=== PATIENT | female | born 1995 | race American Indian/Alaskan Native ===

== ENCOUNTER 2016-09-19 18:00 | Emergency (ER) | payer MEDICAID ==
[2016-09-19 18:55] LABS: Urine Drugs of Abuse Note Disclamer
[2016-09-19 20:01] LABS: Bilirubin,Urine NEG (Negative); Blood,Urine NEG (Negative); Ketones,Urine NEG (Negative); Leukocyte Esterase,Urine NEG (Negative); Mucus,Urine FEW /HPF; Nitrite,Urine NEG (Negative); Protein,Urine <15 mg/dL mg/dL (Negative); RBC,Urine < 1.0 /HPF (0.0-6.0); Urobilinogen,Urine < 2.0 mg/dL (<2.0)
[2016-09-19 20:31] LABS: Basophils % (Auto) 1.1 % (0.0-1.8); Eosinophils % (Auto) 1.8 % (0.0-4.3); Mean Corpuscular HGB Conc 30 % (30-34); Platelet Count 432 K/mm3 (140-440); Red Blood Count 5.75 M/mm3 (3.65-5.03); White Blood Count 5.7 K/mm3 (4.5-11.0)
[2016-09-19 20:39] LABS: Anion Gap 19 mmol/L; Blood Urea Nitrogen 6 mg/dL (7-17); Calcium 9.4 mg/dL (8.4-10.2); Carbon Dioxide 25 mmol/L (22-30); Chloride 104.4 mmol/L (98-107); Glucose 85 mg/dL (65-100); Potassium 4.2 mmol/L (3.6-5.0); Sodium 144 mmol/L (137-145)
[2016-09-19 20:44] LABS: Hematocrit 34.7 % (30.3-42.9); Hemoglobin 10.3 gm/dl (10.1-14.3); Mean Corpuscular Hemoglobin 18 pg (28-32); Mean Corpuscular Volume 60 fl (79-97); Red Cell Distribution Width 21.4 % (13.2-15.2)
--- NOTE | 2016-09-19 20:53 | Emergency Department Report ---
HPI - General Chief Complaint: Overdose Time Seen by Provider: 09/19/16 20:19 - HPI HPI: The patient is a 20-year-old female who presents for evaluation of mental health. The patient reports constant and severe sadness and hopelessness for the past 6 days, exacerbated with alcohol consumption, and associated with suicidal ideations. She states that she consumed a unknown quantity of oxycodone tablets at 4 PM earlier today,3-4 hours prior to arrival. The patient denies fever, headache, unexplained weight loss or weight gain, heat or cold intolerance, skin, hair, or nail changes, neuro deficits, homicidal ideations, or auditory or visual hallucinations. ED Past Medical Hx - Past Medical History Previous Medical History?: Yes Hx Hypertension: No Hx Congestive Heart Failure: No Hx Diabetes: No Hx Deep Vein Thrombosis: No Hx Renal Disease: No Hx Sickle Cell Disease: No Hx Seizures: No Hx Asthma: No Hx COPD: No Hx HIV: No Additional medical history: ASYMPTOMATIC HEART MURMUR ,sickle cell TRAIT - Surgical History Past Surgical History?: No Additional Surgical History: N/A - Social History Smoking Status: Unknown if ever smoked - Medications Home Medications: Home Medications Medication Instructions Recorded Confirmed Last Taken Type Pnv with Ca,No.72/Iron/FA [Pnv 1 tab PO DAILY 06/22/15 06/22/15 Unknown History Plus Multivit Tab] ED Review of Systems ROS: Stated complaint: EVALUATION Other details as noted in HPI Constitutional: denies: fever ENT: denies: throat or neck pain Respiratory: denies: cough, shortness of breath Cardiovascular: denies: chest pain Endocrine: denies unexplained weight loss or gain Gastrointestinal: denies: abdominal pain, nausea Genitourinary: denies: dysuria Musculoskeletal: denies: leg swelling Skin: denies: rash Neurological: denies: headache Hematological/Lymphatic: denies: easy bleeding or easy bruising Psych: reports sadness, hopelessness Physical Exam - Physical Exam Physical Exam: General: well-nourished, well-developed, no acute distress Head: Normocephalic, atraumatic Eyes: normal sclera ENT: Mucous membranes are pink and moist Neck: trachea midline, neck supple, No neck stiffness, no cervical adenopathy Respiratory: Breath sounds equal bilaterally, no wheezing, rales, or rhonchi Cardio: S1 and S2 present, no murmurs, rubs, gallops, capillary refill is brisk Abdomen: Normoactive bowel sounds, soft abdomen, no rigidity, no guarding or rebound tenderness Chest WALL/Back: No tenderness to palpation of the chest wall, no CVA tenderness with percussion Musc: No pitting edema Skin: No rash Neuro: no facial drooping, normal speech Psych: flat affect, poor insight, depressed mood, positive suicidal ideation ED Medical Decision Making - Lab Data Result diagrams: 09/19/16 20:05 09/19/16 20:05 - Medical Decision Making The patient was seen and examined by myself. The patient is placed on a digital field service technician and continuous pulse ox. On initial evaluation, the patient was found to be in no distress. Labs are obtained. Lab results are grossly unremarkable. The patient is medically clear. Mental health is consulted. Mental health evaluates the patient and agrees that the patient is at risk of harm to self. A 1013 is completed. The patient will be admitted to a psychiatric facility once bed placement is obtained. Critical care attestation.: If time is entered above; I have spent that time in minutes in the direct care of this critically ill patient, excluding procedure time. ED Disposition Clinical Impression: Suicidal behavior, Intentional overdose of drug in tablet form Disposition: DC/TX PSY HOSP/PSY UNIT Is pt being admited?: No Does the pt Need Aspirin: No Condition: Stable Referrals: PRIMARY CARE [Primary Care Provider] - 3-5 Days Time of Disposition: 20:53
[2016-09-19] MEDS ORDERED: MOTRIN PO ONE (21:32)
[2016-09-19] MEDS ORDERED: MOTRIN ONE (23:42)
[2016-09-20] MEDS ORDERED: MILK OF MAGNESIA PO PRN (04:39)
[2016-09-20] MEDS ORDERED: ALUM-MAG HYDROX-SIMETH 200-200-20MG/5ML PO PRN (04:39)
[2016-09-20 07:00] VITALS: BP 111/58
--- NOTE | 2016-09-20 09:02 | XRay Report ---
CERVICAL SPINE RADIOGRAPHS INDICATION: Neck pain. COMPARISON: None similar. FINDINGS: AP, lateral and open-mouth views of the cervical spine, 4 images, demonstrate grossly unremarkable visualized dens and symmetric lateral masses. An oral piercing ornament incidentally noted. Clear visualized lung apices. Intact craniocervical articulation on the lateral view with normal predental space and prevertebral soft tissues. Mild cervical kyphosis apex at C4-C5. Adequate visualization up to C7-T1 disc. Normal vertebral body stature and disc heights. Slight cervical dextrocurvature, possibly positional versus scoliosis. CONCLUSION: No acute cervical spine radiographic abnormality with kyphoscoliosis noted, as described. Please correlate. Thank you for the opportunity to participate in this patient's care.
== END 2016-09-20 08:42 ==
LOC: EEVIPCON 18:00 → ED 18:00
DX: T40.2X2A Poisoning by other opioids, intentional self-harm, initial encounter (principal); D57.3 Sickle-cell trait; Y93.89 Activity, other specified; Y99.8 Other external cause status; Y92.89 Other specified places as the place of occurrence of the external cause
CPT/HCPCS: 36415; 72040; 80048; 80307; 81001; 81025; 85025; 93005; 93010; 99285; G0480; 80320

== ENCOUNTER 2017-07-15 15:43 | Emergency (ER) | payer MEDICAID, OTHER ==
[2017-07-15] MEDS ORDERED: TORADOL IM ONE (20:54)
[2017-07-15] MEDS ORDERED: TESSALON PERLES PO ONE (20:54)
[2017-07-15] MEDS ORDERED: LIDOCAINE VISCOUS 2% PO ONE (20:54)
--- NOTE | 2017-07-15 21:06 | Emergency Department Report ---
- General Chief Complaint: Upper Respiratory Infection Stated Complaint: FLU LIKE SYMPTOMS Time Seen by Provider: 07/15/17 20:52 Source: patient Mode of arrival: Ambulatory Limitations: No Limitations - History of Present Illness Initial Comments: This is a 21-year-old female nontoxic, well nourished in appearance, no acute signs of distress presents to the ED with c/o of productive cough, fever, chills , rhinorrhea, sore throat x1 week. Patient describes productive cough as yellow /green mucus production. Patient stated had nausea, vomiting, and diarrhea yesterday but has subsided. Patient denies any chest pain, abdominal pain, calf pain, calf tenderness, nausea, vomiting, back pain, stiff neck, headache, blurry vision, shortness of breath, hemoptysis. Patient denies any recent travels, long car rides, or recent hospital stays. Patient denies any allergies or PMH. MD Complaint: fever, cough, sore throat, rhinorrhea, nasal congestion Severity: mild Severity scale (0 -10): 8 Quality: aching Consistency: constant Improves With: nothing Worsens With: nothing Associated Symptoms: fever, chills, rhinorrhea, nasal congestion, sore throat, cough. denies: myalgias, diaphoresis, headache, stiff neck, chest pain, shortness of breath, abdominal pain, nausea, vomiting, diarrhea, dysuria, rash, confusion, right sweats, weight loss, epistaxis, hoarseness, ear pain Treatments Prior to Arrival: none - Related Data Home Medications Medication Instructions Recorded Confirmed Last Taken Pnv,Calcium 72/Iron/Folic Acid 1 tab PO DAILY 06/22/15 06/22/15 Unknown [Pnv Plus Multivit Tab] Previous Rx's Medication Instructions Recorded Last Taken Type Azithromycin [Zithromax Z-MARY] 250 mg PO DAILY #6 tablet 07/15/17 Unknown Rx Benzonatate [Tessalon Perle] 100 mg PO Q6H PRN #20 capsule 07/15/17 Unknown Rx Ibuprofen [Motrin] 600 mg PO Q8H PRN #30 tablet 07/15/17 Unknown Rx Nystas/Diphen/Xyl Visc/Mylanta 15 ml MM Q6H PRN 20 Days udc 07/15/17 Unknown Rx [Magic Mouthwash] predniSONE [Deltasone] 40 mg PO QDAY #5 tab 07/15/17 Unknown Rx Allergies Allergy/AdvReac Type Severity Reaction Status Date / Time No Known Allergies Allergy Verified 07/15/17 15:52 ED Review of Systems ROS: Stated complaint: FLU LIKE SYMPTOMS Other details as noted in HPI Constitutional: denies: chills, fever Eyes: denies: eye pain, eye discharge, vision change ENT: throat pain. denies: ear pain Respiratory: cough. denies: shortness of breath, wheezing Cardiovascular: denies: chest pain, palpitations Endocrine: no symptoms reported Gastrointestinal: denies: abdominal pain, nausea, diarrhea Genitourinary: denies: urgency, dysuria, discharge Musculoskeletal: denies: back pain, joint swelling, arthralgia Skin: denies: rash, lesions Neurological: denies: headache, weakness, paresthesias Psychiatric: denies: anxiety, depression Hematological/Lymphatic: denies: easy bleeding, easy bruising ED Past Medical Hx - Past Medical History Hx Hypertension: No Hx Congestive Heart Failure: No Hx Diabetes: No Hx Deep Vein Thrombosis: No Hx Renal Disease: No Hx Sickle Cell Disease: No Hx Seizures: No Hx Asthma: No Hx COPD: No Hx HIV: No Additional medical history: ASYMPTOMATIC HEART MURMUR ,sickle cell TRAIT - Surgical History Additional Surgical History: N/A - Social History Smoking Status: Never Smoker Substance Use Type: None - Medications Home Medications: Home Medications Medication Instructions Recorded Confirmed Last Taken Type Pnv,Calcium 72/Iron/Folic Acid 1 tab PO DAILY 06/22/15 06/22/15 Unknown History [Pnv Plus Multivit Tab] Azithromycin [Zithromax Z-MARY] 250 mg PO DAILY #6 tablet 07/15/17 Unknown Rx Benzonatate [Tessalon Perle] 100 mg PO Q6H PRN #20 capsule 07/15/17 Unknown Rx Ibuprofen [Motrin] 600 mg PO Q8H PRN #30 tablet 07/15/17 Unknown Rx Nystas/Diphen/Xyl Visc/Mylanta 15 ml MM Q6H PRN 20 Days udc 07/15/17 Unknown Rx [Magic Mouthwash] predniSONE [Deltasone] 40 mg PO QDAY #5 tab 07/15/17 Unknown Rx ED Physical Exam - General Limitations: No Limitations General appearance: alert, in no apparent distress - Head Head exam: Present: atraumatic, normocephalic - Eye Eye exam: Present: normal appearance, PERRL, EOMI. Absent: scleral icterus, conjunctival injection, nystagmus, periorbital swelling, periorbital tenderness Pupils: Present: normal accommodation - ENT ENT exam: Present: mucous membranes moist, TM's normal bilaterally, normal external ear exam - Expanded ENT Exam Expanded Ear exam: Present: normal external inspection Mouth exam: Present: normal external inspection, tongue normal. Absent: drooling, trismus, muffled voice, tongue elevation, laceration Teeth exam: Present: normal inspection Throat exam: Positive: tonsillar erythema, tonsillomegaly (2+), tonsillar exudate. Negative: R peritonsillar mass, L peritonsillar mass - Neck Neck exam: Present: normal inspection, full ROM. Absent: tenderness, meningismus, lymphadenopathy, thyromegaly - Respiratory Respiratory exam: Present: normal lung sounds bilaterally. Absent: respiratory distress, wheezes, rales, rhonchi, stridor, chest wall tenderness, accessory muscle use, decreased breath sounds, prolonged expiratory - Cardiovascular Cardiovascular Exam: Present: regular rate, normal rhythm, normal heart sounds. Absent: irregular rhythm, systolic murmur, diastolic murmur, rubs, gallop - GI/Abdominal GI/Abdominal exam: Present: soft, normal bowel sounds. Absent: distended, tenderness, guarding, rebound, rigid, diminished bowel sounds - Rectal Rectal exam: Present: deferred - Extremities Exam Extremities exam: Present: normal inspection, full ROM, normal capillary refill. Absent: tenderness, pedal edema, joint swelling, calf tenderness - Back Exam Back exam: Present: normal inspection, full ROM. Absent: tenderness, CVA tenderness (R), CVA tenderness (L), muscle spasm, paraspinal tenderness, vertebral tenderness, rash noted - Neurological Exam Neurological exam: Present: alert, oriented X3, CN II-XII intact, normal gait, reflexes normal - Psychiatric Psychiatric exam: Present: normal affect, normal mood - Skin Skin exam: Present: warm, dry, intact, normal color. Absent: rash ED Course Vital Signs 07/15/17 07/15/17 15:52 22:09 Temperature 99 F 98.6 F Pulse Rate 91 H 97 H Respiratory 16 18 Rate Blood Pressure 133/94 Blood Pressure 143/87 [Right] O2 Sat by Pulse 98 100 Oximetry - Reevaluation(s) Reevaluation #1: 07/15/17 21:07 Patient is speaking in full sentences with no signs of distress noted. ED Medical Decision Making - Lab Data Result diagrams: 07/15/17 21:15 07/15/17 21:15 - Medical Decision Making Patient is a 21-year-old female that presents with upper resp infection and tonsillitis with exudate. Patient is stable and was examined by me. Chest xray has been obtained and dictated by radiologist. Patient was notified of xray results with no questions noted by the patient. Patient received viscous lidocaine and Tessalon Perles in the ED. Patient stated his symptoms are improving at having a cough and sore throat. Labs within normal limits. Patient is discharged with Z-Mary, Tessalon Perles. Patient was instructed to Follow-up with a primary care doctor in 3-5 days or if symptoms worsen and continue return to emergency room as soon as possible. At time time of discharge, the patient does not seem toxic or ill in appearance. No acute signs of distress noted. Patient agrees to discharge treatment plan of care. No further questions noted by the patient. This chart is dictated with using [employer] D[employer]ation [employer] Critical care attestation.: If time is entered above; I have spent that time in minutes in the direct care of this critically ill patient, excluding procedure time. ED Disposition Clinical Impression: Tonsillitis with exudate, Bronchitis Upper respiratory infection Qualifiers: URI type: unspecified URI Qualified Code(s): J06.9 - Acute upper respiratory infection, unspecified Disposition: DC-01 TO HOME OR SELFCARE Is pt being admited?: No Does the pt Need Aspirin: No Condition: Stable Instructions: Benzonatate (By mouth), Prednisone (By mouth), Azithromycin (By mouth), Upper Respiratory Infection (ED), Chronic Bronchitis (ED), Tonsillitis ( ED) Additional Instructions: Follow-up with a primary care doctor in 3-5 days or if symptoms worsen and continue return to emergency room as soon as possible. Prescriptions: Azithromycin [Zithromax Z-MARY] 250 mg PO DAILY #6 tablet Benzonatate [Tessalon Perle] 100 mg PO Q6H PRN #20 capsule PRN Reason: Cough Ibuprofen [Motrin] 600 mg PO Q8H PRN #30 tablet PRN Reason: Fever Nystas/Diphen/Xyl Visc/Mylanta [Magic Mouthwash] 15 ml MM Q6H PRN 20 Days udc PRN Reason: Sore Throat predniSONE [Deltasone] 40 mg PO QDAY #5 tab Referrals: ROE ROBERTS MD [Primary Care Provider] - 3-5 Days JIN ROMANO MD [Staff Physician] - 3-[address] [facility] [Outside] - 3-5 Days [facility] [Outside] - 3-5 Days Forms: Work/School Release Form(ED)
[2017-07-15] MEDS ORDERED: MOTRIN PO ONE (21:08)
[2017-07-15 21:36] LABS: Basophils % (Auto) 0.8 % (0.0-1.8); Eosinophils % (Auto) 4.2 % (0.0-4.3); Hemoglobin 10.6 gm/dl (10.1-14.3); Mean Corpuscular HGB Conc 31 % (30-34); Platelet Count 378 K/mm3 (140-440); Red Blood Count 5.14 M/mm3 (3.65-5.03); Red Cell Distribution Width 19.5 % (13.2-15.2); White Blood Count 4.8 K/mm3 (4.5-11.0)
[2017-07-15 21:37] LABS: Mean Corpuscular Hemoglobin 21 pg (28-32); Mean Corpuscular Volume 66 fl (79-97)
--- NOTE | 2017-07-15 21:45 | XRay Report ---
FINAL REPORT EXAM: XR CHEST ROUTINE 2V HISTORY: cough TECHNIQUE: Two views of the chest Comparison: None FINDINGS: Heart size is normal. Lungs are clear and well expanded without focal infiltrate or consolidation. There is mild peribronchial thickening. There is no pleural effusion. The imaged axial skeleton is unremarkable. IMPRESSION: No pneumonia. Mild peribronchial thickening compatible with bronchitis. Recommend follow-up imaging to ensure the left hilar peribronchial thickening completely resolves after treatment as it is simulating nodularity of the left hilum.
[2017-07-15 21:50] LABS: Alanine Aminotransferase 10 units/L (7-56); Albumin 4.1 g/dL (3.9-5); Albumin/Globulin Ratio 1.3 %; Alkaline Phosphatase 42 units/L (35-129); Anion Gap 14 mmol/L; BUN/Creatinine Ratio 17; Blood Urea Nitrogen 10 mg/dL (7-17); Calcium 9.2 mg/dL (8.4-10.2); Carbon Dioxide 29 mmol/L (22-30); Chloride 100.8 mmol/L (98-107); Glucose 97 mg/dL (65-100); Lipase 40 units/L (13-60); Potassium 4.2 mmol/L (3.6-5.0); Sodium 140 mmol/L (137-145); Total Protein 7.2 g/dL (6.3-8.2)
[2017-07-15 21:51] LABS: Bilirubin,Direct < 0.2 mg/dL (0-0.2)
[2017-07-15] MEDS ORDERED: DECADRON IM ONE (21:55)
[2017-07-15 22:39] VITALS: BP 123/58
== END 2017-07-15 22:39 | disposition home or self-care (01) ==
LOC: ED 15:43
DX: J40 Bronchitis, not specified as acute or chronic (principal); J06.9 Acute upper respiratory infection, unspecified; J03.90 Acute tonsillitis, unspecified
CPT/HCPCS: 36415; 71020; 80048; 80074; 83690; 84703; 85025; 96372; 99284; J1100; J1885

== ENCOUNTER 2017-08-04 16:22 | Emergency (ER) | payer OTHER ==
[2017-08-04 17:57] VITALS: BP 105/78
--- NOTE | 2017-08-04 21:44 | XRay Report ---
FINAL REPORT EXAM: XR ANKLE 3+V LT HISTORY: fall, pain, edema to lt ankle TECHNIQUE: 3 views of left ankle. PRIORS: None. FINDINGS: No apparent fracture or dislocation. Ankle mortise maintained. Soft tissues grossly unremarkable. Artifact from probable elastic brace incidentally noted. IMPRESSION: 1. No acute osseous abnormality.
== END 2017-08-05 07:06 | disposition left against medical advice (07) ==
LOC: ED 16:22
DX: M25.572 Pain in left ankle and joints of left foot (principal); Z53.21 Procedure and treatment not carried out due to patient leaving prior to being seen by health care provider

== ENCOUNTER 2017-09-06 02:19 | Emergency (ER) | payer OTHER | END 2017-09-06 04:00 | disposition left against medical advice (07) | LOC: ED 02:19 | DX: R10.9 Unspecified abdominal pain (principal); Z53.21 Procedure and treatment not carried out due to patient leaving prior to being seen by health care provider ==

== ENCOUNTER 2018-04-24 16:40 | Emergency (ER) | payer OTHER ==
[2018-04-24 16:57] VITALS: BP 139/81
== END 2018-04-24 17:55 | disposition left against medical advice (07) ==
LOC: ED 16:40
DX: J02.9 Acute pharyngitis, unspecified (principal); Z53.21 Procedure and treatment not carried out due to patient leaving prior to being seen by health care provider

== ENCOUNTER 2019-05-05 13:44 | Emergency (ER) | payer OTHER ==
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
[2019-05-05 16:30] VITALS: BP 103/70
== END 2019-05-05 16:29 | disposition home or self-care (01) ==
LOC: ED 13:44
DX: O99.342 Other mental disorders complicating pregnancy, second trimester (principal); F41.9 Anxiety disorder, unspecified; O26.892 Other specified pregnancy related conditions, second trimester; R10.30 Lower abdominal pain, unspecified; R42 Dizziness and giddiness; Z87.891 Personal history of nicotine dependence; Z79.899 Other long term (current) drug therapy; Z3A.18 18 weeks gestation of pregnancy; V49.59XA Passenger injured in collision with other motor vehicles in traffic accident, initial encounter; Y93.89 Activity, other specified; Y92.410 Unspecified street and highway as the place of occurrence of the external cause; Y99.8 Other external cause status
CPT/HCPCS: 76805

== ENCOUNTER 2019-07-18 15:34 | Outpatient (CLI) | payer OTHER ==
[2019-07-18 16:04] VITALS: BP 120/67
== END 2019-07-18 17:24 | disposition home or self-care (01) ==
LOC: TRG 15:34
PROVIDERS: ATTEND Obstetrics & Gynecology
DX: O47.02 False labor before 37 completed weeks of gestation, second trimester (principal); Z3A.27 27 weeks gestation of pregnancy
CPT/HCPCS: 59025

== ENCOUNTER 2019-09-27 20:22 | Outpatient (CLI) | payer OTHER ==
[2019-09-27 20:46] VITALS: BP 136/75
== END 2019-09-27 22:44 | disposition home or self-care (01) ==
LOC: TRG 20:22 → LD 20:24 → TRG 22:44
PROVIDERS: ATTEND Obstetrics & Gynecology
DX: O47.1 False labor at or after 37 completed weeks of gestation (principal); Z3A.37 37 weeks gestation of pregnancy

== ENCOUNTER 2020-01-14 16:04 | Emergency (ER) | payer OTHER ==
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
[2020-01-14 17:01] LABS: Basophils # (Auto) 0.1 K/mm3 (0.0-0.1); Basophils % (Auto) 0.8 % (0.0-1.8); Eosinophils # (Auto) 0.3 K/mm3 (0.0-0.4); Eosinophils % (Auto) 3.8 % (0.0-4.3); Hemoglobin 14.4 gm/dl (10.1-14.3); Lymphocytes # (Auto) 1.6 K/mm3 (1.2-5.4); Lymphocytes % (Auto) 24.3 % (13.4-35.0); Mean Corpuscular HGB Conc 33 % (30-34); Mean Corpuscular Volume 81 fl (79-97); Monocytes # (Auto) 0.7 K/mm3 (0.0-0.8); Platelet Count 447 K/mm3 (140-440); Red Blood Count 5.42 M/mm3 (3.65-5.03); Red Cell Distribution Width 18.5 % (13.2-15.2)
--- NOTE | 2020-01-14 17:19 | XRay Report ---
CHEST 2 VIEWS INDICATION / CLINICAL INFORMATION: sob,cough and rales. COMPARISON: 09/05/2016 FINDINGS: SUPPORT DEVICES: None. HEART / MEDIASTINUM: No significant abnormality. LUNGS / PLEURA: No significant pulmonary or pleural abnormality. No pneumothorax. ADDITIONAL FINDINGS: No significant additional findings. IMPRESSION: 1. No acute findings. Signer Name: Kiran Celeste MD Signed: 01/14/2020 5:14 PM Workstation Name: [id number]
[2020-01-14 17:24] LABS: Alanine Aminotransferase 14 units/L (7-56); Albumin 4.2 g/dL (3.9-5); BUN/Creatinine Ratio 13; Blood Urea Nitrogen 10 mg/dL (7-17); Calcium 9.8 mg/dL (8.4-10.2); Hemolysis Index 13
[2020-01-14] MEDS ORDERED: IBUPROFEN 400 MG TAB PO ONE (18:25)
[2020-01-14] MEDS ORDERED: FAMOTIDINE 20 MG TAB PO ONE (18:25)
[2020-01-14] MEDS ORDERED: ACETAMINOPHEN 500 MG TAB PO ONE (18:25)
--- NOTE | 2020-01-14 18:31 | Emergency Department Report ---
ED General Adult HPI - General Chief complaint: High BP Stated complaint: BP HIGH PUI?: No Time Seen by Provider: 01/14/20 16:40 Source: patient, RN notes reviewed, old records reviewed Mode of arrival: Ambulatory Limitations: No Limitations - History of Present Illness Initial comments: The patient is a 24-year-old female. She is not known to myself previously. 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 She does not have chronic medical conditions that she is aware of. She was at her outpatient [employer] doctor's office today, being evaluated for intermittent irregular menstruation, and was found to have elevated blood pressure, and thus referred to the emergency room for evaluation. On review of systems, the patient endorses multiple complaints. Her first complaint is headache. The headache is left-sided, temporal and throbbing. The headache started at 6 or 7:00 this morning. The headache is not sudden or thunderclap in nature. Headache is not maximal in intensity. The headache is not the most intense or worst headache of her life. She reports having had a worse headache last month. There is no neck pain or neck stiffness. There is no loss of vision. There is no extremity weakness and or numbness. There was no abdominal pain, shortness of breath, vomiting, diaphoresis, irritative or obstructive urinary symptoms. She is not sleeping well secondary to her , and she also reports at least 5 to 6 hours of screen time on her cellular phone. She also endorses a concurrent complaint of central chest wall pain, present constantly since 7:00 in the morning, which does not radiate to the back, arms or neck, without vomiting, diaphoresis or exertional shortness of breath. The patient states no recent oral contraceptive use, no travel, no surgeries, no posterior leg pain and or leg swelling. She is feeling somewhat anxious about her elevated blood pressure. She occasionally consumes caffeinated beverages as well. -: Gradual, hour(s) Location: head, chest Severity scale (0 -10): 7 Consistency: constant (Chest wall pain is constant), intermittent (Left-sided headache is intermittent, and now basically resolved) Improves with: other (Headache now resolved. No exacerbating or relieving factors that she is aware of. Chest wall pain is constant, increases with palpation and decreases with rest) - Related Data Home Medications Medication Instructions Recorded Confirmed Last Taken Pnv,Calcium 72/Iron/Folic Acid 1 tab PO DAILY 06/22/15 06/22/15 1 Week Ago [Pnv Plus Multivit Tab] ~07/11/19 1 tab buPROPion HCL [Bupropion HCl Sr] 150 mg PO 07/18/19 07/18/19 1 tab Previous Rx's Medication Instructions Recorded Last Taken Type Oseltamivir [Tamiflu] 75 mg PO BID 5 Days #10 cap 07/10/19 2 Days Ago Rx ~07/16/19 Ibuprofen [Motrin] 600 mg PO Q8H PRN #60 tablet 10/04/19 Unknown Rx Allergies Allergy/AdvReac Type Severity Reaction Status Date / Time No Known Allergies Allergy Verified 07/15/17 15:52 ED Review of Systems ROS: Stated complaint: BP HIGH Other details as noted in HPI Constitutional: denies: fever Eyes: denies: eye discharge, vision change Respiratory: denies: cough Cardiovascular: other (Chest wall pain). denies: syncope Gastrointestinal: denies: abdominal pain, nausea, vomiting Genitourinary: denies: dysuria Musculoskeletal: denies: back pain Neurological: headache. denies: weakness, numbness, paresthesias, confusion Psychiatric: as per HPI Hematological/Lymphatic: denies: easy bleeding ED Past Medical Hx - Past Medical History Previous Medical History?: Yes Hx Hypertension: No Hx CVA: No Hx Heart Attack/AMI: No Hx Congestive Heart Failure: No Hx Diabetes: No Hx Deep Vein Thrombosis: No Hx Pulmonary Embolism: No Hx GERD: No Hx Liver Disease: No Hx Renal Disease: No Hx Sickle Cell Disease: No Hx Arthritis: No Hx Headaches / Migraines: No Hx Seizures: No Hx Kidney Stones: No Hx Psychiatric Treatment: No Hx Asthma: No Hx COPD: No Hx HIV: No Additional medical history: ASYMPTOMATIC HEART MURMUR ,sickle cell TRAIT, ANXIE TY - Surgical History Past Surgical History?: No Additional Surgical History: N/A - Social History Smoking Status: Never Smoker Substance Use Type: None - Medications Home Medications: Home Medications Medication Instructions Recorded Confirmed Last Taken Type Pnv,Calcium 72/Iron/Folic Acid 1 tab PO DAILY 06/22/15 06/22/15 1 Week Ago History [Pnv Plus Multivit Tab] ~07/11/19 1 tab Oseltamivir [Tamiflu] 75 mg PO BID 5 Days #10 cap 07/10/19 07/18/19 2 Days Ago Rx ~07/16/19 buPROPion HCL [Bupropion HCl Sr] 150 mg PO 07/18/19 07/18/19 History 1 tab Ibuprofen [Motrin] 600 mg PO Q8H PRN #60 tablet 10/04/19 Unknown Rx ED Physical Exam - General Limitations: No Limitations General appearance: alert, in no apparent distress - Head Head exam: Present: atraumatic, normocephalic - Eye Eye exam: Present: normal appearance, PERRL, EOMI, other (Visual acuity intact to finger counting, color perception, reading at a close distance). Absent: nystagmus - ENT ENT exam: Present: normal exam, normal orophraynx, mucous membranes moist, normal external ear exam - Neck Neck exam: Present: normal inspection, full ROM. Absent: tenderness, meningismus - Respiratory Respiratory exam: Present: normal lung sounds bilaterally, chest wall tenderness. Absent: respiratory distress - Cardiovascular Cardiovascular Exam: Present: regular rate, normal rhythm, normal heart sounds. Absent: bradycardia, tachycardia, irregular rhythm, systolic murmur, diastolic murmur, rubs, gallop - GI/Abdominal GI/Abdominal exam: Present: soft, normal bowel sounds. Absent: distended, tenderness, guarding, rebound, rigid, pulsatile mass - Extremities Exam Extremities exam: Present: normal inspection, full ROM, other (2+ pulses noted in the bilateral upper and lower extremities. There is no palpable cord. negative Homans sign. Muscular compartments are soft. The pelvis is stable.). Absent: pedal edema, calf tenderness - Back Exam Back exam: Present: normal inspection, full ROM. Absent: tenderness, CVA tenderness (R), CVA tenderness (L), paraspinal tenderness, vertebral tenderness - Neurological Exam Neurological exam: Present: alert, oriented X3, normal gait, other (No facial droop. Tongue midline. Extraocular movements intact bilaterally. Facial sensation intact to light touch in V1, V2, V3 distribution bilaterally. 5 and a 5 strength in 4 extremities. Sensation intact to light touch in 4 extre mities.). Absent: motor sensory deficit - Psychiatric Psychiatric exam: Present: anxious - Skin Skin exam: Present: warm, dry, intact, normal color. Absent: rash ED Course Vital Signs 01/14/20 01/14/20 01/14/20 16:17 16:41 18:26 Temperature 99.4 F Pulse Rate 92 H Respiratory 20 Rate Blood Pressure Blood Pressure 164/110 [Right] O2 Sat by Pulse 98 100 Oximetry 01/14/20 01/14/20 01/14/20 18:30 18:46 19:33 Temperature Pulse Rate 88 Respiratory 18 Rate Blood Pressure 152/104 149/106 Blood Pressure 156/99 [Right] O2 Sat by Pulse 99 100 100 Oximetry - Reevaluation(s) Reevaluation #1: 01/14/20 19:03 Feels improved. Blood pressure improved. Resting comfortably in her stretcher and in no acute distress. Endorses readiness for discharge. ED Medical Decision Making - Lab Data Result diagrams: 01/14/20 16:51 01/14/20 16:51 Vital Signs 01/14/20 01/14/20 16:17 16:41 Temperature 99.4 F Pulse Rate 92 H Respiratory 20 Rate Blood Pressure 164/110 [Right] O2 Sat by Pulse 98 Oximetry Lab Results 01/14/20 01/14/20 01/14/20 Range/Units 16:51 16:51 17:49 WBC 6.6 (4.5-11.0) K/mm3 RBC 5.42 H (3.65-5.03) M/mm3 Hgb 14.4 H (10.1-14.3) gm/dl Hct 44.0 H (30.3-42.9) % MCV 81 (79-97) fl MCH 27 L (28-32) pg MCHC 33 (30-34) % RDW 18.5 H (13.2-15.2) % Plt Count 447 H (140-440) K/mm3 Lymph % (Auto) 24.3 (13.4-35.0) % Candler % (Auto) 11.0 H (0.0-7.3) % Eos % (Auto) 3.8 (0.0-4.3) % Baso % (Auto) 0.8 (0.0-1.8) % Lymph # 1.6 (1.2-5.4) K/mm3 Candler # 0.7 (0.0-0.8) K/mm3 Eos # 0.3 (0.0-0.4) K/mm3 Baso # 0.1 (0.0-0.1) K/mm3 Seg Neutrophils % 60.1 (40.0-70.0) % Seg Neutrophils # 4.0 (1.8-7.7) K/mm3 Sodium 139 (137-145) mmol/L Potassium 3.8 (3.6-5.0) mmol/L Chloride 100.7 (98-107) mmol/L Carbon Dioxide 25 (22-30) mmol/L Anion Gap 17 mmol/L BUN 10 (7-17) mg/dL Creatinine 0.8 (0.7-1.2) mg/dL Estimated GFR > 60 ml/min BUN/Creatinine Ratio 13 % Glucose 77 (65-100) mg/dL Calcium 9.8 (8.4-10.2) mg/dL Magnesium 2.20 (1.7-2.3) mg/dL Total Bilirubin 0.40 (0.1-1.2) mg/dL AST 17 (5-40) units/L ALT 14 (7-56) units/L Alkaline Phosphatase 59 (35-129) units/L Total Creatine Kinase 125 (30-135) units/L Troponin T < 0.010 (0.00-0.029) ng/mL Total Protein 7.9 (6.3-8.2) g/dL Albumin 4.2 (3.9-5) g/dL Albumin/Globulin Ratio 1.1 % - EKG Data -: EKG Interpreted by Hi EKG shows normal: sinus rhythm Rate: normal - EKG Data When compared to previous EKG there are: no significant change Interpretation: unchanged when compared t 01/14/20 18:35 EKG today as compared to prior EKG from September 19, 2016 Sinus rhythm, 82 bpm, normal axis, normal intervals, high left ventricular vol tage, incomplete right bundle branch block. The EKG is abnormal. There is early repolarization. The EKG is not a STEMI. - Radiology Data Radiology results: pending, report reviewed, image reviewed Report Referring Physician: MARY FERREIRA Patient Name: LESLI LOPEZ Date of : 1995 Sex: Female Report Date: 2020-01-14 Report Status: Finalized Findings [facility] [address] [place] [address] XRay Report Signed Patient: LESLI LOPEZ MR #: [id number] : 1995 Acct:[id number] Age/Sex: 24 / F ADM Date: 01/14/20 Loc: ED At [facility] Dr: Ordering Physician: IVONNE BAILEY Date of Service: 01/14/20 Procedure(s): XR chest routine 2V Accession Number(s): [id number] cc: IVONNE BAILEY Fluoro Time In Minutes: CHEST 2 VIEWS INDICATION / CLINICAL INFORMATION: sob,cough and rales. COMPARISON: 09/05/2016 FINDINGS: SUPPORT DEVICES: None. HEART / MEDIASTINUM: No significant abnormality. LUNGS / PLEURA: No significant pulmonary or pleural abnormality. No pneumothorax. ADDITIONAL FINDINGS: No significant additional findings. IMPRESSION: 1. No acute findings. Signer Name: Kiran Celeste MD Signed: 01/14/2020 5:14 PM Workstation Name: [id number] Transcribed By: DARWIN Dictated By: Kiran Celeste MD Electronically Authe nticated By: Kiran Celeste MD Signed Date/Time: 01/14/201713 DD/ 12 - Medical Decision Making Differential diagnosis, including but not limited to: Migraine headache, tension headache, cluster headache, headache secondary to excessive cell phone use, headache secondary to sleep deprivation. GERD, gastritis, hiatal hernia, costochondritis Assessment and plan: 24-year-old female with multiple complaints. Complaints #1, incidental elevated blood pressure. Patient has a GCS of 15, with NIH score of 0, unremarkable neurologic and physical examination, EKG unchanged from prior. Please reference the [employer] clinical policy on hypertension which is not acutely symptomatic. Given her benign exam, lack of meningeal findings, GCS, neuroimaging is unlikely to be of any significant diagnostic yield, and will expose the patient to unnecessary radiation. Therefore, we will treat her headache supportively and symptomatically. We have counseled the patient to minimize cellular phone use, and to avoid sleep deprivation, if possible. Patient counseled on need to follow-up with outpatient primary care doctor to follow along elevated blood pressure readings, and initiate therapy if possible. However, even if the patient does have hypertension, first-line treatment would be diet and lifestyle modification. Complaint #2 headache, please see above . Complaints #3, chest wall pain Patient is not currently tachycardic, tachypneic or hypoxic, she denies DVT and pulmonary embolism risk factors, she is low risk by Wells criteria, and she is PERC negative. Her EKG is unchanged from prior. A troponin was sent prior to my personal evaluation, it was obtained more than 8 hours after symptom onset, as per the [employer] clinical policy, acute myocardial infarction may be ruled out with 1 set of cardiac enzymes if symptoms present for greater than 8 hours. In addition, I find the patient to be low risk for major adverse cardiac event as per heart score. 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 Critical care attestation.: If time is entered above; I have spent that time in minutes in the direct care of this critically ill patient, excluding procedure time. ED Disposition Clinical Impression: Elevated blood pressure reading, Chest wall pain, Headache Disposition: DC-01 TO HOME OR SELFCARE Is pt being admited?: No Does the pt Need Aspirin: No Condition: Stable Additional Instructions: Patient should get at least 7 to 8 hours of good quality uninterrupted sleep each night. Patient should minimize consumption of alcohol, caffeine, heavy and spicy foods. Minimize computer and cell phone and tablet utilization, limit screen time to tasks that are only essential for daily functioning. Patient may take [id number] ibuprofen, 400 mg by mouth, with food as needed for pain, alternating with over-the counter Tylenol, 650 mg by mouth, every 4-6 hours as needed for pain, maximum daily dose of Tylenol to not exceed 3 g per 24 hours. Patient should exercise as tolerated, and eat plenty of fiber, vegetables, and lean protein. Advised that the patient follow-up with the primary medical doctor, or sweet goods machine operator for complaint of elevated blood pressure and chest discomfort within the next 5 to 7 days. Please return to the emergency room right away with new pain, worsening pain, migration of pain, projectile vomiting, change in mental status, confusion, inability to tolerate liquid feeds, new, worsened or different symptoms not present on the initial emergency room evaluation. Referrals: JULISSA TEJADA MD [Staff Physician] - 3-5 Days FRANCISCO JAVIER BUTLER MD [Staff Physician] - 3-5 Days JACLYN KEITH MD [Staff Physician] - 3-5 Days
[2020-01-14 19:34] VITALS: BP 156/99
== END 2020-01-14 19:34 | disposition home or self-care (01) ==
LOC: ED 16:04
DX: R03.0 Elevated blood-pressure reading, without diagnosis of hypertension (principal); R07.89 Other chest pain; R51 Headache; Z79.1 Long term (current) use of non-steroidal anti-inflammatories (NSAID); Z79.899 Other long term (current) drug therapy
CPT/HCPCS: 36415; 71046; 80053; 82550; 83735; 84484; 85025; 93005

== ENCOUNTER 2020-06-29 17:07 | Emergency (ER) | payer OTHER | END 2020-06-29 18:56 | disposition left against medical advice (07) | LOC: ED 17:07 | DX: M54.6 Pain in thoracic spine (principal); R51.9 Headache, unspecified; R10.9 Unspecified abdominal pain; Z53.21 Procedure and treatment not carried out due to patient leaving prior to being seen by health care provider ==

== ENCOUNTER 2020-12-14 15:47 | Emergency (ER) | payer OTHER ==
[2020-12-14 16:58] VITALS: BP 115/72
[2020-12-14 17:22] LABS: Basophils # (Auto) 0.2 K/mm3 (0.0-0.1); Basophils % (Auto) 2.5 % (0.0-1.8); Eosinophils # (Auto) 0.3 K/mm3 (0.0-0.4); Eosinophils % (Auto) 5.1 % (0.0-4.3); Hematocrit 39.9 % (30.3-42.9); Hemoglobin 13.3 gm/dl (10.1-14.3); Lymphocytes # (Auto) 1.4 K/mm3 (1.2-5.4); Lymphocytes % (Auto) 23.1 % (13.4-35.0); Mean Corpuscular HGB Conc 33 % (30-34); Mean Corpuscular Volume 81 fl (79-97); Monocytes # (Auto) 0.5 K/mm3 (0.0-0.8); Monocytes % (Auto) 8.5 % (0.0-7.3); Platelet Count 370 K/mm3 (140-440); Red Blood Count 4.93 M/mm3 (3.65-5.03)
[2020-12-14 17:45] LABS: Bilirubin,Urine NEG (Negative); Blood,Urine SM (Negative); Color,Urine Yellow (Yellow); Hyaline Casts,Urine 7 /LPF; Mucus,Urine 3+ /HPF; Protein,Urine <15 mg/dL mg/dL (Negative)
[2020-12-14 17:46] LABS: Alanine Aminotransferase 9 units/L (7-56); Albumin 4.4 g/dL (3.9-5); BUN/Creatinine Ratio 11; Blood Urea Nitrogen 10 mg/dL (7-17); Calcium 10.1 mg/dL (8.4-10.2); Hemolysis Index 10
[2020-12-14 17:50] LABS: Benzodiazepines Screen,Urine Negative; Cannabinoid Screen,Urine Negative; Cocaine Screen,Urine Negative; Methadone Screen,Urine Negative; Opiate Screen,Urine Negative
[2020-12-14 18:02] LABS: Amphetamine Screen,Urine Positive
--- NOTE | 2020-12-14 18:31 | XRay Report ---
CHEST 2 VIEWS INDICATION / CLINICAL INFORMATION: Chest pain, palpitations and lightheadedness. COMPARISON: 01/14/20. FINDINGS: SUPPORT DEVICES: None. HEART / MEDIASTINUM: The heart size and pulmonary vasculature are normal. The aorta is normal in araceli diana. LUNGS / PLEURA: No significant pulmonary or pleural abnormality. No pneumothorax. ADDITIONAL FINDINGS: No significant additional findings. IMPRESSION: No acute abnormality or significant change. Signer Name: Aditya Chaparro MD Signed: 12/14/2020 6:26 PM Workstation Name: [id number]
--- NOTE | 2020-12-14 18:53 | Emergency Department Report ---
ED General Adult HPI - General Chief complaint: Chest Pain Stated complaint: CHEST PAINS Time Seen by Provider: 12/14/20 17:13 Source: patient Mode of arrival: Ambulatory Limitations: No Limitations - History of Present Illness Initial comments: Patient is a 25-year-old female presents emergency room complaints of an episode of lightheadedness that occurred while she was at work. She states that she works at [employer] and it was very hot in the kitchen. She states that she also is having some intermittent midsternal chest pain and some palpitations when she was feeling lightheaded. She denies any pain or lightheadedness currently. She denies any dizziness or headache. Denies any fever, cough, nausea, vomiting, diarrhea, shortness of breath, pleuritic chest pain, leg swelling. she denies any recent travel, sick contacts, recent surgery, hormone use, recent immobilization. Past medical history of anxiety, sickle cell trait, heart murmur. No allergies to medications. Last menstrual cycle last week. - Related Data Home Medications Medication Instructions Recorded Confirmed Last Taken Pnv,Calcium 72/Iron/Folic Acid 1 tab PO DAILY 06/22/15 06/22/15 1 Week Ago [Pnv Plus Multivit Tab] ~07/11/19 1 tab buPROPion HCL [Bupropion HCl Sr] 150 mg PO 07/18/19 07/18/19 1 tab Previous Rx's Medication Instructions Recorded Last Taken Type Oseltamivir [Tamiflu] 75 mg PO BID 5 Days #10 cap 07/10/19 2 Days Ago Rx ~07/16/19 Ibuprofen [Motrin] 600 mg PO Q8H PRN #60 tablet 10/04/19 Unknown Rx Allergies Allergy/AdvReac Type Severity Reaction Status Date / Time No Known Allergies Allergy Verified 07/15/17 15:52 ED Review of Systems ROS: Stated complaint: CHEST PAINS Other details as noted in HPI Comment: All other systems reviewed and negative ED Past Medical Hx - Past Medical History Previous Medical History?: Yes Hx Hypertension: No Hx CVA: No Hx Heart Attack/AMI: No Hx Congestive Heart Failure: No Hx Diabetes: No Hx Deep Vein Thrombosis: No Hx Pulmonary Embolism: No Hx GERD: No Hx Liver Disease: No Hx Renal Disease: No Hx Sickle Cell Disease: No Hx Arthritis: No Hx Headaches / Migraines: No Hx Seizures: No Hx Kidney Stones: No Hx Psychiatric Treatment: No Hx Asthma: No Hx COPD: No Hx HIV: No Additional medical history: ASYMPTOMATIC HEART MURMUR ,sickle cell TRAIT, ANXIETY - Surgical History Additional Surgical History: N/A - Social History Smoking Status: Never Smoker Substance Use Type: None - Medications Home Medications: Home Medications Medication Instructions Recorded Confirmed Last Taken Type Pnv,Calcium 72/Iron/Folic Acid 1 tab PO DAILY 06/22/15 06/22/15 1 Week Ago History [Pnv Plus Multivit Tab] ~07/11/19 1 tab Oseltamivir [Tamiflu] 75 mg PO BID 5 Days #10 cap 07/10/19 07/18/19 2 Days Ago Rx ~07/16/19 buPROPion HCL [Bupropion HCl Sr] 150 mg PO 07/18/19 07/18/19 History 1 tab Ibuprofen [Motrin] 600 mg PO Q8H PRN #60 tablet 10/04/19 Unknown Rx ED Physical Exam - General Limitations: No Limitations General appearance: alert, in no apparent distress - Head Head exam: Present: atraumatic, normocephalic - Eye Eye exam: Present: normal appearance - ENT ENT exam: Present: mucous membranes moist - Respiratory Respiratory exam: Present: normal lung sounds bilaterally. Absent: respiratory distress, wheezes, rales, rhonchi, stridor, chest wall tenderness, accessory muscle use, decreased breath sounds, prolonged expiratory - Cardiovascular Cardiovascular Exam: Present: regular rate, normal rhythm, normal heart sounds. Absent: systolic murmur, diastolic murmur, rubs, gallop - Neurological Exam Neurological exam: Present: alert, oriented X3 - Psychiatric Psychiatric exam: Present: normal affect, normal mood - Skin Skin exam: Present: warm, dry, intact ED Course Vital Signs 12/14/20 12/14/20 16:57 16:58 Temperature 99.3 F Pulse Rate 84 Respiratory 18 Rate Blood Pressure 115/72 ED Medical Decision Making - Lab Data Result diagrams: 12/14/20 17:10 12/14/20 17:10 Lab Results 12/14/20 12/14/20 12/14/20 Range/Units 17:10 17:10 17:10 WBC 6.2 (4.5-11.0) K/mm3 RBC 4.93 (3.65-5.03) M/mm3 Hgb 13.3 (10.1-14.3) gm/dl Hct 39.9 (30.3-42.9) % MCV 81 (79-97) fl MCH 27 L (28-32) pg MCHC 33 (30-34) % RDW 14.0 (13.2-15.2) % Plt Count 370 (140-440) K/mm3 Lymph % (Auto) 23.1 (13.4-35.0) % Arthur % (Auto) 8.5 H (0.0-7.3) % Eos % (Auto) 5.1 H (0.0-4.3) % Baso % (Auto) 2.5 H (0.0-1.8) % Lymph # (Auto) 1.4 (1.2-5.4) K/mm3 Arthur # (Auto) 0.5 (0.0-0.8) K/mm3 Eos # (Auto) 0.3 (0.0-0.4) K/mm3 Baso # (Auto) 0.2 H (0.0-0.1) K/mm3 Seg Neutrophils % 60.8 (40.0-70.0) % Seg Neutrophils # 3.8 (1.8-7.7) K/mm3 Sodium 137 (137-145) mmol/L Potassium 3.6 (3.6-5.0) mmol/L Chloride 101.2 (98-107) mmol/L Carbon Dioxide 28 (22-30) mmol/L Anion Gap 11 mmol/L BUN 10 (7-17) mg/dL Creatinine 0.9 (0.6-1.2) mg/dL Estimated GFR > 60 ml/min BUN/Creatinine Ratio 11 % Glucose 74 (65-100) mg/dL Calcium 10.1 (8.4-10.2) mg/dL Magnesium 2.20 (1.7-2.3) mg/dL Total Bilirubin 0.20 (0.1-1.2) mg/dL AST 16 (5-40) units/L ALT 9 (7-56) units/L Alkaline Phosphatase 61 (35-129) units/L Total Creatine Kinase 132 (30-135) units/L Troponin T < 0.010 (0.00-0.029) ng/mL Total Protein 7.4 (6.3-8.2) g/dL Albumin 4.4 (3.9-5) g/dL Albumin/Globulin Ratio 1.5 % TSH 0.430 (0.270-4.200) mlU/mL HCG, Qual (Negative) Urine Color (Yellow) Urine Turbidity (Clear) Urine pH (5.0-7.0) Ur Specific [place] (1.003-1.030) Urine Protein (Negative) mg/dL Urine Glucose (UA) (Negative) mg/dL Urine Ketones (Negative) mg/dL Urine Blood (Negative) Urine Nitrite (Negative) Urine Bilirubin (Negative) Urine Urobilinogen (<2.0) mg/dL Ur Leukocyte Esterase (Negative) Urine WBC (Auto) (0.0-6.0) /HPF Urine RBC (Auto) (0.0-6.0) /HPF U Epithel Cells (Auto) (0-13.0) /HPF Hyaline Casts /LPF Urine Mucus /HPF Urine Opiates Screen Urine Methadone Screen Ur Barbiturates Screen Ur Phencyclidine Scrn Ur Amphetamines Screen U Benzodiazepines Scrn Urine Cocaine Screen U Marijuana (THC) Screen Drugs of Abuse Note 12/14/20 12/14/20 12/14/20 Range/Units 17:10 17:33 17:33 WBC (4.5-11.0) K/mm3 RBC (3.65-5.03) M/mm3 Hgb (10.1-14.3) gm/dl Hct (30.3-42.9) % MCV (79-97) fl MCH (28-32) pg MCHC (30-34) % RDW (13.2-15.2) % Plt Count (140-440) K/mm3 Lymph % (Auto) (13.4-35.0) % Arthur % (Auto) (0.0-7.3) % Eos % (Auto) (0.0-4.3) % Baso % (Auto) (0.0-1.8) % Lymph # (Auto) (1.2-5.4) K/mm3 Arthur # (Auto) (0.0-0.8) K/mm3 Eos # (Auto) (0.0-0.4) K/mm3 Baso # (Auto) (0.0-0.1) K/mm3 Seg Neutrophils % (40.0-70.0) % Seg Neutrophils # (1.8-7.7) K/mm3 Sodium (137-145) mmol/L Potassium (3.6-5.0) mmol/L Chloride (98-107) mmol/L Carbon Dioxide (22-30) mmol/L Anion Gap mmol/L BUN (7-17) mg/dL Creatinine (0.6-1.2) mg/dL Estimated GFR ml/min BUN/Creatinine Ratio % Glucose (65-100) mg/dL Calcium (8.4-10.2) mg/dL Magnesium (1.7-2.3) mg/dL Total Bilirubin (0.1-1.2) mg/dL AST (5-40) units/L ALT (7-56) units/L Alkaline Phosphatase (35-129) units/L Total Creatine Kinase (30-135) units/L Troponin T (0.00-0.029) ng/mL Total Protein (6.3-8.2) g/dL Albumin (3.9-5) g/dL Albumin/Globulin Ratio % TSH (0.270-4.200) mlU/mL HCG, Qual Negative (Negative) Urine Color Yellow (Yellow) Urine Turbidity Clear (Clear) Urine pH 5.0 (5.0-7.0) Ur Specific [place] 1.020 (1.003-1.030) Urine Protein <15 mg/dl (Negative) mg/dL Urine Glucose (UA) Neg (Negative) mg/dL Urine Ketones Neg (Negative) mg/dL Urine Blood Sm (Negative) Urine Nitrite Neg (Negative) Urine Bilirubin Neg (Negative) Urine Urobilinogen 2.0 (<2.0) mg/dL Ur Leukocyte Esterase Neg (Negative) Urine WBC (Auto) 3.0 (0.0-6.0) /HPF Urine RBC (Auto) 5.0 (0.0-6.0) /HPF U Epithel Cells (Auto) < 1.0 (0-13.0) /HPF Hyaline Casts 7 /LPF Urine Mucus 3+ /HPF Urine Opiates Screen Negative Urine Methadone Screen Negative Ur Barbiturates Screen Negative Ur Phencyclidine Scrn Negative Ur Amphetamines Screen Positive U Benzodiazepines Scrn Negative Urine Cocaine Screen Negative U Marijuana (THC) Screen Negative Drugs of Abuse Note Disclamer - EKG Data EKG shows normal: sinus rhythm, axis, intervals, QRS complexes, ST-T waves Rate: normal - Radiology Data Radiology results: report reviewed Ordering Physician: IVONNE MCGRATH Date of Service: 12/14/20 Procedure(s): XR chest routine 2V Accession Number(s): [id number] cc: IVONNE MCGRATH Fluoro Time In Minutes: CHEST 2 VIEWS INDICATION / CLINICAL INFORMATION: Chest pain, palpitations and lightheadedness. COMPARISON: 01/14/20. FINDINGS: SUPPORT DEVICES: None. HEART / MEDIASTINUM: The heart size and pulmonary vasculature are normal. The aorta is normal in caliber. LUNGS / PLEURA: No significant pulmonary or pleural abnormality. No pneumothorax. ADDITIONAL FINDINGS: No significant additional findings. IMPRESSION: No acute abnormality or significant change. Signer Name: Aditya Chaparro MD Signed: 12/14/2020 6:26 PM Workstation Name: [id number] Transcribed By: RT Dictated By: Aditya Chaparro MD Electronically Authenticated By: Aditya Chaparro MD Signed Date/Time: 12/14/201825 DD/ 24 TD/TT: Print Cancel - Medical Decision Making Patient is a 25-year-old female presents emergency room complaints of an episode of lightheadedness that occurred while she was at work. She states that she works at [employer] and it was very hot in the kitchen. She states that she also is having some intermittent midsternal chest pain and some palpitations when she was feeling lightheaded. She denies any pain or lightheadedness currently. She denies any dizziness or headache. Denies any fever, cough, nausea, vomiting, diarrhea, shortness of breath, pleuritic chest pain, leg swelling. she denies any recent travel, sick contacts, recent surgery, hormone use, recent immobilization. Past medical history of anxiety, sickle cell trait, heart murm ur. No allergies to medications. Last menstrual cycle last week. Vitals are normal. No abnormality on physical examination as documented in chart. Labs are normal. hCG is negative. UA is within normal limits. UA is positive for amphetamines. EKG is normal. Chest x-ray IMPRESSION: No acute abnormality or significant change. Patient has no focal neuro deficits on exam. She has no hypotension. Discussed amphetamines being positive in her UDS, she states that she is prescribed Adderall by her primary care doctor. She states that she believes she does have side effects from her Adderall and is planning to make an appointment with her primary care doctor to discuss other treatment options. PERC criteria negative for PE, PE unlikely. Advised patient Please increase your water intake. Please avoid caffeine use such as sodas, energy drinks, tea. Please avoid amphetamine use. Follow-up with your primary care doctor. Follow- up with a director correctional agency. Return to emergency room for any new or worsening symptoms. Critical care attestation.: If time is entered above; I have spent that time in minutes in the direct care of this critically ill patient, excluding procedure time. ED Disposition Clinical Impression: Palpitations, Lightheaded, Amphetamine abuse Chest pain Qualifiers: Chest pain type: unspecified Qualified Code(s): R07.9 - Chest pain, unspecified Disposition: DC-01 TO HOME OR SELFCARE Is pt being admited?: No Does the pt Need Aspirin: No Condition: Stable Instructions: Nonspecific Chest Pain, Adult Additional Instructions: Please increase your water intake. Please avoid caffeine use such as sodas, energy drinks, tea. Please avoid amphetamine use. Follow-up with your primary care doctor. Follow-up with a director correctional agency. Return to emergency room for any new or worsening symptoms. Referrals: PRIMARY CARE, [Primary Care Provider] - 2-3 Days LORELEI LEÓN MD [Staff Physician] - 2-3 Days Forms: Work/School Release Form(ED) Time of Disposition: 18:52 Print Language: HUNGARIAN
--- NOTE | 2020-12-15 13:35 | Electrocardiograph Report ---
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
== END 2020-12-14 19:13 | disposition home or self-care (01) ==
LOC: ED 15:47
DX: R00.2 Palpitations (principal); R07.89 Other chest pain; R42 Dizziness and giddiness; F15.10 Other stimulant abuse, uncomplicated; Z79.1 Long term (current) use of non-steroidal anti-inflammatories (NSAID); Z79.899 Other long term (current) drug therapy
CPT/HCPCS: 36415; 71046; 80053; 80307; 81001; 82550; 83735; 84443; 84484; 84703; 85025; 93005

== ENCOUNTER 2021-03-23 08:03 | Emergency (ER) | payer OTHER ==
[2021-03-23] MEDS ORDERED: ROCURONIUM 50 MG/5 ML INJ IV ONE (08:20)
[2021-03-23] MEDS ORDERED: MINERAL OIL/PETROLATUM, WHITE OPHTH OINT 3.5 GM OU PRN (08:24)
[2021-03-23] MEDS ORDERED: LIP THERAPY VASELINE TP PRN (08:24)
--- NOTE | 2021-03-23 08:29 | Emergency Department Report ---
HPI - General Time Seen by Provider: 03/23/21 08:23 - HPI HPI: This is a 25-year-old -[place] female presents to the emergency department via EMS from home for altered mental status and respiratory failure. The initial call from EMS was for cardiac arrest. However, prior to initiating ACLS protocol EMS found the patient to have a pulse and the breathing at about 4-6 times per minute. She was given 2 mg of Narcan without any change. She presents into bed #19 completely obtunded, with snoring respirations and bradypnea. Family told EMS that she could have overdosed on "something" as she will sometimes use medications recreationally. She has a past medical history of hypertension. ED Past Medical Hx - Past Medical History Hx Hypertension: No Hx CVA: No Hx Heart Attack/AMI: No Hx Congestive Heart Failure: No Hx Diabetes: No Hx Deep Vein Thrombosis: No Hx Pulmonary Embolism: No Hx GERD: No Hx Liver Disease: No Hx Renal Disease: No Hx Sickle Cell Disease: No Hx Arthritis: No Hx Headaches / Migraines: No Hx Seizures: No Hx Kidney Stones: No Hx Psychiatric Treatment: No Hx Asthma: No Hx COPD: No Hx HIV: No Additional medical history: ASYMPTOMATIC HEART MURMUR ,sickle cell TRAIT, ANXIETY - Surgical History Additional Surgical History: N/A - Social History Smoking Status: Never Smoker Substance Use Type: None - Medications Home Medications: Home Medications Medication Instructions Recorded Confirmed Last Taken Type Pnv,Calcium 72/Iron/Folic Acid 1 tab PO DAILY 06/22/15 06/22/15 1 Week Ago History [Pnv Plus Multivit Tab] ~07/11/19 1 tab Oseltamivir [Tamiflu] 75 mg PO BID 5 Days #10 cap 07/10/19 07/18/19 2 Days Ago Rx ~07/16/19 buPROPion HCL [Bupropion HCl Sr] 150 mg PO 07/18/19 07/18/19 History 1 tab Ibuprofen [Motrin] 600 mg PO Q8H PRN #60 tablet 10/04/19 Unknown Rx ED Review of Systems ROS: Stated complaint: CARDIAC ARREST Other details as noted in HPI Comment: Unobtainable due to pts medical conditions Physical Exam - Physical Exam Physical Exam: GENERAL: The patient is ill-appearing and unresponsive. HENT: Normocephalic. Atraumatic. Patient has moist mucous membranes. EYES: Pupils are equal and round, but dilated at about 7 mm. Both pupils have a brisk reactivity to light. NECK: Supple. Trachea is midline. CHEST/LUNGS: Coarse breath sounds. Bradypnea with snoring respirations. HEART/CARDIOVASCULAR: Regular. There is severe tachycardia. There is no murmur. ABDOMEN: Abdomen is soft, nontender. Patient has normal bowel sounds. SKIN: Skin is warm and dry. NEURO: Patient is unresponsive to verbal or tactile stimuli. GCS of 3. She appears to have some posturing of the bilateral upper extremities. MUSCULOSKELETAL: There is no obvious deformity. ED Course - Consultations Consultation #1: 03/23/21 10:00 I spoke to the neurosurgeon on-call, Dr. Bass, who listened to the pr esentation and the CT results showing concern for diffuse cerebral edema. He recommended the patient receive 100 g of mannitol, a loading dose of Keppra, and the patient will need transfer to another facility as we do not have actual neurosurgical capabilities here. Consultation #2: 03/23/21 10:10 I contacted the [place] transfer line to speak with them regarding transfer the patient to their ICU. They are going to call me back once the physicians have been contacted but the transfer line notifies me that they are on saturation. I will contact [facility] for Sarah in the meantime. 03/23/21 10:39 I did speak with the [place] neuro test hole driller, Dr. Pa. She took a look at the images from the CT scan of the brain and says that it does not appear consistent with a venous sinus thrombosis. She recommends extensive resuscitation and MICU management for the source of the hypoxia. Unfortunately they do not have a ICU bed available for transfer. I then spoke with Dr. Glover, neuro test hole driller at [facility]. The patient has tentatively been accepted for transfer to [facility]. She will either get a bed assignment or it will be ER to ER. - Intubation Time Out Performed: Yes Paralytic: Rocuronium Mg Given: 80 Laryngoscope: other (Ball scope) Size: 3 ET Tube Size: 7.5 Tube Secured Depth (cm): 24 Tube Secured Location: lips Tube Placement Confirmation: visualized tube passing t, equal breath sounds galo at, confirmation by capnometr Patient Tolerated Procedure: well Intubation Complications: none ED Medical Decision Making - Lab Data Result diagrams: 03/23/21 08:53 03/23/21 08:53 Lab Results 03/23/21 03/23/21 03/23/21 Range/Units 08:07 08:34 08:53 WBC 4.6 (4.5-11.0) K/mm3 RBC 5.70 H (3.65-5.03) M/mm3 Hgb 15.2 H (10.1-14.3) gm/dl Hct 47.8 H (30.3-42.9) % MCV 84 (79-97) fl MCH 27 L (28-32) pg MCHC 32 (30-34) % RDW 16.0 H (13.2-15.2) % PT (12.2-14.9) Sec. INR (0.87-1.13) APTT (24.2-36.6) Sec. Sodium (137-145) mmol/L Potassium (3.6-5.0) mmol/L Chloride (98-107) mmol/L Carbon Dioxide (22-30) mmol/L Anion Gap mmol/L BUN (7-17) mg/dL Creatinine (0.6-1.2) mg/dL Estimated GFR ml/min BUN/Creatinine Ratio % Glucose (65-100) mg/dL POC Glucose 30 L 141 H (70-105) mg/dL Lactic Acid (0.7-2.0) mmol/L Calcium (8.4-10.2) mg/dL Total Bilirubin (0.1-1.2) mg/dL AST (5-40) units/L ALT (7-56) units/L Alkaline Phosphatase (35-129) units/L Ammonia (25-60) umol/L Troponin T (0.00-0.029) ng/mL Total Protein (6.3-8.2) g/dL Albumin (3.9-5) g/dL Albumin/Globulin Ratio % Triglycerides (2-149) mg/dL Cholesterol (50-199) mg/dL LDL Cholesterol Direct (50-130) mg/dL HDL Cholesterol (40-59) mg/dL Cholesterol/HDL Ratio % TSH (0.270-4.200) mlU/mL Urine Color (Yellow) Urine Turbidity (Clear) Urine pH (5.0-7.0) Ur Specific Lindsay (1.003-1.030) Urine Protein (Negative) mg/dL Urine Glucose (UA) (Negative) mg/dL Urine Ketones (Negative) mg/dL Urine Blood (Negative) Urine Nitrite (Negative) Urine Bilirubin (Negative) Urine Urobilinogen (<2.0) mg/dL Ur Leukocyte Esterase (Negative) Urine WBC (Auto) (0.0-6.0) /HPF Urine RBC (Auto) (0.0-6.0) /HPF U Epithel Cells (Auto) (0-13.0) /HPF Salicylates (2.8-20.0) mg/dL Acetaminophen (10.0-30.0) ug/mL Plasma/Serum Alcohol (0-0.07) % 03/23/21 03/23/21 03/23/21 Range/Units 08:53 08:53 08:53 WBC (4.5-11.0) K/mm3 RBC (3.65-5.03) M/mm3 Hgb (10.1-14.3) gm/dl Hct (30.3-42.9) % MCV (79-97) fl MCH (28-32) pg MCHC (30-34) % RDW (13.2-15.2) % PT 16.6 H (12.2-14.9) Sec. INR 1.29 H (0.87-1.13) APTT 22.1 L (24.2-36.6) Sec. Sodium 140 (137-145) mmol/L Potassium 4.9 (3.6-5.0) mmol/L Chloride 103.7 (98-107) mmol/L Carbon Dioxide 26 (22-30) mmol/L Anion Gap 15 mmol/L BUN 15 (7-17) mg/dL Creatinine 1.3 H (0.6-1.2) mg/dL Estimated GFR 59 ml/min BUN/Creatinine Ratio 12 % Glucose 138 H (65-100) mg/dL POC Glucose (70-105) mg/dL Lactic Acid 5.80 H* (0.7-2.0) mmol/L Calcium 8.2 L (8.4-10.2) mg/dL Total Bilirubin 0.30 (0.1-1.2) mg/dL AST 60 H (5-40) units/L ALT 21 (7-56) units/L Alkaline Phosphatase 58 (35-129) units/L Ammonia (25-60) umol/L Troponin T 0.170 H* (0.00-0.029) ng/mL Total Protein 7.4 (6.3-8.2) g/dL Albumin 3.8 L (3.9-5) g/dL Albumin/Globulin Ratio 1.1 % Triglycerides 95 (2-149) mg/dL Cholesterol 93 (50-199) mg/dL LDL Cholesterol Direct 38 L (50-130) mg/dL HDL Cholesterol 44 (40-59) mg/dL Cholesterol/HDL Ratio 2.11 % TSH (0.270-4.200) mlU/mL Urine Color (Yellow) Urine Turbidity (Clear) Urine pH (5.0-7.0) Ur Specific Lindsay (1.003-1.030) Urine Protein (Negative) mg/dL Urine Glucose (UA) (Negative) mg/dL Urine Ketones (Negative) mg/dL Urine Blood (Negative) Urine Nitrite (Negative) Urine Bilirubin (Negative) Urine Urobilinogen (<2.0) mg/dL Ur Leukocyte Esterase (Negative) Urine WBC (Auto) (0.0-6.0) /HPF Urine RBC (Auto) (0.0-6.0) /HPF U Epithel Cells (Auto) (0-13.0) /HPF Salicylates (2.8-20.0) mg/dL Acetaminophen (10.0-30.0) ug/mL Plasma/Serum Alcohol (0-0.07) % 03/23/21 03/23/21 03/23/21 Range/Units 08:53 08:53 08:53 WBC (4.5-11.0) K/mm3 RBC (3.65-5.03) M/mm3 Hgb (10.1-14.3) gm/dl Hct (30.3-42.9) % MCV (79-97) fl MCH (28-32) pg MCHC (30-34) % RDW (13.2-15.2) % PT (12.2-14.9) Sec. INR (0.87-1.13) APTT (24.2-36.6) Sec. Sodium (137-145) mmol/L Potassium (3.6-5.0) mmol/L Chloride (98-107) mmol/L Carbon Dioxide (22-30) mmol/L Anion Gap mmol/L BUN (7-17) mg/dL Creatinine (0.6-1.2) mg/dL Estimated GFR ml/min BUN/Creatinine Ratio % Glucose (65-100) mg/dL POC Glucose (70-105) mg/dL Lactic Acid (0.7-2.0) mmol/L Calcium (8.4-10.2) mg/dL Total Bilirubin (0.1-1.2) mg/dL AST (5-40) units/L ALT (7-56) units/L Alkaline Phosphatase (35-129) units/L Ammonia 103.0 H (25-60) umol/L Troponin T (0.00-0.029) ng/mL Total Protein (6.3-8.2) g/dL Albumin (3.9-5) g/dL Albumin/Globulin Ratio % Triglycerides (2-149) mg/dL Cholesterol (50-199) mg/dL LDL Cholesterol Direct (50-130) mg/dL HDL Cholesterol (40-59) mg/dL Cholesterol/HDL Ratio % TSH 0.360 (0.270-4.200) mlU/mL Urine Color (Yellow) Urine Turbidity (Clear) Urine pH (5.0-7.0) Ur Specific Lindsay (1.003-1.030) Urine Protein (Negative) mg/dL Urine Glucose (UA) (Negative) mg/dL Urine Ketones (Negative) mg/dL Urine Blood (Negative) Urine Nitrite (Negative) Urine Bilirubin (Negative) Urine Urobilinogen (<2.0) mg/dL Ur Leukocyte Esterase (Negative) Urine WBC (Auto) (0.0-6.0) /HPF Urine RBC (Auto) (0.0-6.0) /HPF U Epithel Cells (Auto) (0-13.0) /HPF Salicylates < 0.3 L (2.8-20.0) mg/dL Acetaminophen (10.0-30.0) ug/mL Plasma/Serum Alcohol (0-0.07) % 03/23/21 03/23/21 03/23/21 Range/Units 08:53 08:53 Unknown WBC (4.5-11.0) K/mm3 RBC (3.65-5.03) M/mm3 Hgb (10.1-14.3) gm/dl Hct (30.3-42.9) % MCV (79-97) fl MCH (28-32) pg MCHC (30-34) % RDW (13.2-15.2) % PT (12.2-14.9) Sec. INR (0.87-1.13) APTT (24.2-36.6) Sec. Sodium (137-145) mmol/L Potassium (3.6-5.0) mmol/L Chloride (98-107) mmol/L Carbon Dioxide (22-30) mmol/L Anion Gap mmol/L BUN (7-17) mg/dL Creatinine (0.6-1.2) mg/dL Estimated GFR ml/min BUN/Creatinine Ratio % Glucose (65-100) mg/dL POC Glucose (70-105) mg/dL Lactic Acid (0.7-2.0) mmol/L Calcium (8.4-10.2) mg/dL Total Bilirubin (0.1-1.2) mg/dL AST (5-40) units/L ALT (7-56) units/L Alkaline Phosphatase (35-129) units/L Ammonia (25-60) umol/L Troponin T (0.00-0.029) ng/mL Total Protein (6.3-8.2) g/dL Albumin (3.9-5) g/dL Albumin/Globulin Ratio % Triglycerides (2-149) mg/dL Cholesterol (50-199) mg/dL LDL Cholesterol Direct (50-130) mg/dL HDL Cholesterol (40-59) mg/dL Cholesterol/HDL Ratio % TSH (0.270-4.200) mlU/mL Urine Color Colorless (Yellow) Urine Turbidity Clear (Clear) Urine pH 7.0 (5.0-7.0) Ur Specific Lindsay 1.004 (1.003-1.030) Urine Protein <15 mg/dl (Negative) mg/dL Urine Glucose (UA) 50 (Negative) mg/dL Urine Ketones Neg (Negative) mg/dL Urine Blood Mod (Negative) Urine Nitrite Neg (Negative) Urine Bilirubin Neg (Negative) Urine Urobilinogen < 2.0 (<2.0) mg/dL Ur Leukocyte Esterase Neg (Negative) Urine WBC (Auto) 1.0 (0.0-6.0) /HPF Urine RBC (Auto) 1.0 (0.0-6.0) /HPF U Epithel Cells (Auto) < 1.0 (0-13.0) /HPF Salicylates (2.8-20.0) mg/dL Acetaminophen 5.0 L (10.0-30.0) ug/mL Plasma/Serum Alcohol < 0.01 (0-0.07) % - EKG Data -: EKG Interpreted by Ne EKG shows normal: sinus rhythm, axis, intervals, QRS complexes, ST-T waves Rate: tachycardia (135 bpm) - EKG Data When compared to previous EKG there are: previous EKG unavailable Interpretation: other (Sinus tachycardia at 135 bpm, normal axis, normal inter vals. No ST elevation TN) - Radiology Data Radiology results: report reviewed CHEST 1 VIEW 03/23/2021 8:09 AM INDICATION / CLINICAL INFORMATION: ETT placement. COMPARISON: December 14, 2020 FINDINGS: SUPPORT DEVICES: ET tube is satisfactory in position NG tube extends within the stomach HEART / MEDIASTINUM: No significant abnormality. LUNGS / PLEURA: Diffuse opacities are seen lungs most significant in the right lung with possible layering effusion and underlying parenchymal disease. No pneumothorax. CT head/brain wo con INDICATION: Altered mental status. TECHNIQUE: Routine CT head. All CT scans at this location are performed using CT dose reduction for ALARA by means of automated exposure control. COMPARISON: 01/18/2011 FINDINGS: Intracranial: Complete sulcal effacement. The sulci were not well seen on the prior exam from 10 years ago. However the findings. Mildly worse. Toribio-white matter differentiation is maintained. No intracranial hemorrhage. No extra axial collection. No hydrocephalus. No herniation. Sinuses: Paranasal sinuses and mastoid air cells are essentially clear. Orbits: Globes are intact. Calvarium: No acute fracture. IMPRESSION: 1. Complete sulcal effacement raises concern for underlying diffuse cerebral edema which can be seen in the setting of hypoxic ischemic injury injury. No loss of toribio-white matter differentiation to suggest territorial infarction. Findings could also be normal and related to patient's age as the sulci were not well appreciated on prior exam. Recommend MRI brain for further evaluation. Signer Name: Cain Huang MD Signed: 03/23/2021 9:44 AM Workstation Name: [id number] Transcribed By: CS Dictated By: Cain Huang MD Electronically Authenticated By: Cain Huang MD Signed Date/Time: 03/23/21943 DD/ 3 TD/TT: -- [Addendum Report Added by CAIN HUANG at 2021-03-23 09:59:45] [facility] [address] [place] [address] Cat Scan Report Signed Patient: LESLI LOPEZ MR #: [id number] : 1995 Acct:[id number] Age/Sex: 25 / F ADM Date: 03/23/21 Loc: ED Attending Dr: Ordering Physician: OLINDA REYNAGA DO Date of Service: 03/23/21 Procedure(s): CT head/brain wo con Accession Number(s): [id number] cc: OLINDA REYNAGA DO CT head/brain wo con INDICATION: Altered mental status. TECHNIQUE: Routine CT head. All CT scans at this location are performed using CT dose reduction for ALARA by means of automated exposure control. COMPARISON: 01/18/2011 FINDINGS: Intracranial: Complete sulcal effacement. The sulci were not well seen on the prior exam from 10 years ago. However the find ings. Mildly worse. Toribio-white matter differentiation is maintained. No intracranial hemorrhage. No extra axial collection. No hydrocephalus. No herniation. Sinuses: Paranasal sinuses and mastoid air cells are essentially clear. Orbits: Globes are intact. Calvarium: No acute fracture. IMPRESSION: 1. Complete sulcal effacement raises concern for underlying diffuse cerebral edema which can be seen in the setting of hypoxic ischemic injury injury. No loss of toribio-white matter differentiation to suggest territorial infarction. Findings could also be normal and related to patient's age as the sulci were not well appreciated on prior exam. Recommend MRI brain for further evaluation. - Medical Decision Making This patient presented via EMS from home after she was found unresponsive in respiratory distress. No response to Narcan. She had some hypoglycemia and was given D50 but once again had no response. The patient was intubated by me as per the procedure section. Chest x-ray shows some bilateral opacities, right greater than left, and a pleural effusion. CT of the head shows concern for diffuse cerebral edema. I had a discussion with our neurosurgeon on-call who recommended mannitol and Keppra and transfer. I spoke with neuro test hole driller at [place] but they did not have any bed availability. The patient was accepted for transfer to [facility] by their neuro test hole driller. Labs are mostly remarkable for a lactic acidosis greater than 5, and an elevated troponin of 0.17. EKG did not have any morphology consistent with ST elevation myocardial infarction, or any dysrhythmia. The patient's mother and grandmother were updated regarding her condition, her results, and the plan for transfer to [facility]. Critical Care Time: Yes Critical care time in (mins) excluding proc time.: 75 Critical care attestation.: If time is entered above; I have spent that time in minutes in the direct care of this critically ill patient, excluding procedure time. Critical care time was spent on this patient doing her initial evaluation, multiple reevaluations, ordering and interpretation of labs and imaging, IV mannitol for the cerebral edema, discussion with our neurosurgeon director of labor relations, discussion with 2 different neuro test hole driller, discussions with the patient's family. Critical Care Time: 75 minutes ED Disposition Clinical Impression: Acute respiratory failure, Cerebral edema, NSTEMI (non-ST elevated myocardial infarction), Lactic acidosis Disposition: 51 HOSPICE/MEDICAL FACILITY Is pt being admited?: No Condition: Critical Time of Disposition: 13:31
[2021-03-23] MEDS: SODIUM CHLORIDE 0.9% 1000 ML 1,000 ML IV ONE ×2 (09:00→10:17)
[2021-03-23 09:06] LABS: Hematocrit 47.8 % (30.3-42.9); Hemoglobin 15.2 gm/dl (10.1-14.3); Mean Corpuscular HGB Conc 32 % (30-34); Mean Corpuscular Volume 84 fl (79-97)
--- NOTE | 2021-03-23 09:19 | XRay Report ---
CHEST 1 VIEW 03/23/2021 8:09 AM INDICATION / CLINICAL INFORMATION: ETT placement. COMPARISON: December 14, 2020 FINDINGS: SUPPORT DEVICES: ET tube is satisfactory in position NG tube extends within the stomach HEART / MEDIASTINUM: No significant abnormality. LUNGS / PLEURA: Diffuse opacities are seen lungs most significant in the right lung with possible lay ering effusion and underlying parenchymal disease. No pneumothorax. Signer Name: Raji Thompson MD Signed: 03/23/2021 9:15 AM Workstation Name: [id number]
[2021-03-23 09:24] LABS: INR 1.29 (0.87-1.13); Partial Thromboplastin Time 22.1 Sec. (24.2-36.6)
[2021-03-23 09:28] LABS: Bilirubin,Urine NEG (Negative); Blood,Urine MOD (Negative); Color,Urine Colorless (Yellow); Protein,Urine <15 mg/dL mg/dL (Negative); Urobilinogen,Urine < 2.0 mg/dL (<2.0)
[2021-03-23 09:38] LABS: Albumin 3.8 g/dL (3.9-5); Calcium 8.2 mg/dL (8.4-10.2)
--- NOTE | 2021-03-23 09:49 | Cat Scan Report ---
CT head/brain wo con INDICATION: Altered mental status. TECHNIQUE: Routine CT head. All CT scans at this location are performed using CT dose reduction for A JOSE C by means of automated exposure control. COMPARISON: 01/18/2011 FINDINGS: Intracranial: Complete sulcal effacement. The sulci were not well seen on the prior exam from 10 year s ago. However the findings. Mildly worse. Toribio-white matter differentiation is maintained. No intrac ranial hemorrhage. No extra axial collection. No hydrocephalus. No herniation. Sinuses: Paranasal sinuses and mastoid air cells are essentially clear. Orbits: Globes are intact. Calvarium: No acute fracture. IMPRESSION: 1. Complete sulcal effacement raises concern for underlying diffuse cerebral edema which can be seen in the setting of hypoxic ischemic injury injury. No loss of toribio-white matter differentiation to knowles ggest territorial infarction. Findings could also be normal and related to patient's age as the sulci were not well appreciated on prior exam. Recommend MRI brain for further evaluation. Signer Name: Cain Nation MD Signed: 03/23/2021 9:44 AM Workstation Name: [id number]
[2021-03-23] MEDS ORDERED: MANNITOL 20% 500 ML IV NR (09:56)
[2021-03-23] MEDS ORDERED: levETIRAcetam 1000 MG/NS 0.75% 1,000 MG/100 ML BAG IV ONE (09:56)
[2021-03-23] MEDS ORDERED: SENNOSIDES/DOCUSATE SODIUM 8.6/50 MG TAB FEEDTUBE SCH (10:00)
[2021-03-23] MEDS ORDERED: FAMOTIDINE 20 MG/2 ML INJ IV SCH (10:00)
[2021-03-23] MEDS ORDERED: SODIUM CHLORIDE 0.9% 1000 ML 1,000 ML IV ONE (10:31)
[2021-03-23 10:43] LABS: Chol/HDL Ratio 2.11 %
[2021-03-23] MEDS ORDERED: LACTULOSE 20 GM/30 ML ORAL LIQD PO ONE (11:06)
[2021-03-23 15:01] LABS: Band Neutrophils # (Manual) 1.8 K/mm3; Myelocytes # (Manual) 0.3 K/mm3; Total Cells Counted 100
[2021-03-23 15:06] LABS: Platelet Estimate Consistent w Auto
[2021-03-23 15:13] LABS: Platelet Count 248 K/mm3 (140-440)
[2021-03-23 16:06] VITALS: BP 105/70
--- NOTE | 2021-03-26 14:06 | Electrocardiograph Report ---
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
== END 2021-03-23 12:00 | disposition hospice, inpatient (51) ==
LOC: ED 08:03
DX: J96.00 Acute respiratory failure, unspecified whether with hypoxia or hypercapnia (principal); G93.6 Cerebral edema; I21.4 Non-ST elevation (NSTEMI) myocardial infarction; E87.2 Acidosis; Z79.899 Other long term (current) drug therapy
CPT/HCPCS: 31500; 36415; 70450; 71045; 80053; 80061; 81001; 82140; 82962; 84443; 84484; 85007; 85025; 85610; 85730; 87086; 93005; 96361; 96365; 96375; 99291; 99292; J1953; J2150; J2704; J7030; 80320; 82805; 94002; G0480

== ENCOUNTER 2021-08-21 21:16 | Emergency (ER) | payer OTHER ==
[2021-08-21 23:15] LABS: Hematocrit 39.3 % (30.3-42.9); Hemoglobin 12.6 gm/dl (10.1-14.3); Mean Corpuscular HGB Conc 32 % (30-34); Mean Corpuscular Volume 77 fl (79-97); Platelet Count 368 K/mm3 (140-440); Red Blood Count 5.09 M/mm3 (3.65-5.03); Red Cell Distribution Width 17.2 % (13.2-15.2)
[2021-08-21 23:26] LABS: Blood Urea Nitrogen 8 mg/dL (7-17); Hemolysis Index 2
[2021-08-21 23:29] LABS: BUN/Creatinine Ratio 11
[2021-08-21 23:50] VITALS: BP 111/62
[2021-08-22 03:06] LABS: Band Neutrophils # (Manual) 1.4 K/mm3; Basophils % (Manual) 0 % (0.0-1.8); Total Cells Counted 100
[2021-08-22 03:07] LABS: Platelet Estimate Consistent w Auto
--- NOTE | 2021-08-22 03:57 | Emergency Department Report ---
History of Present Illness - General Chief Complaint: Overdose Stated Complaint: OVERDOSE Time Seen by Provider: 08/21/21 21:23 Source: EMS Mode of arrival: Stretcher Limitations: Altered Mental Status - History of Present Illness Initial Comments: Patient is a 25-year-old F [place] female who was found unresponsive. Patient was given Narcan prior to arrival. Patient on arrival is lucid. States she is depressed and was feeling suicidal. Patient few Percocet is attempt to kill herself. No auditory visual hallucinations at this time. MD Complaint: intentional overdose - Related Data Home Medications Medication Instructions Recorded Confirmed Last Taken Pnv,Calcium 72/Iron/Folic Acid 1 tab PO DAILY 06/22/15 06/22/15 1 Week Ago [Pnv Plus Multivit Tab] ~07/11/19 1 tab buPROPion HCL [Bupropion HCl Sr] 150 mg PO 07/18/19 07/18/19 1 tab Previous Rx's Medication Instructions Recorded Last Taken Type Oseltamivir [Tamiflu] 75 mg PO BID 5 Days #10 cap 07/10/19 2 Days Ago Rx ~07/16/19 Ibuprofen [Motrin] 600 mg PO Q8H PRN #60 tablet 10/04/19 Unknown Rx Allergies Allergy/AdvReac Type Severity Reaction Status Date / Time No Known Allergies Allergy Verified 07/15/17 15:52 ED Review of Systems ROS: Stated complaint: OVERDOSE Other details as noted in HPI Comment: All other systems reviewed and negative ED Past Medical Hx - Past Medical History Hx Hypertension: No Hx CVA: No Hx Heart Attack/AMI: No Hx Congestive Heart Failure: No Hx Diabetes: No Hx Deep Vein Thrombosis: No Hx Pulmonary Embolism: No Hx GERD: No Hx Liver Disease: No Hx Renal Disease: No Hx Sickle Cell Disease: No Hx Arthritis: No Hx Headaches / Migraines: No Hx Seizures: No Hx Kidney Stones: No Hx Psychiatric Treatment: No Hx Asthma: No Hx COPD: No Hx HIV: No Additional medical history: ASYMPTOMATIC HEART MURMUR ,sickle cell TRAIT, ANXIETY - Surgical History Additional Surgical History: N/A - Social History Smoking Status: Never Smoker Substance Use Type: None - Medications Home Medications: Home Medications Medication Instructions Recorded Confirmed Last Taken Type Pnv,Calcium 72/Iron/Folic Acid 1 tab PO DAILY 06/22/15 06/22/15 1 Week Ago History [Pnv Plus Multivit Tab] ~07/11/19 1 tab Oseltamivir [Tamiflu] 75 mg PO BID 5 Days #10 cap 07/10/19 07/18/19 2 Days Ago Rx ~07/16/19 buPROPion HCL [Bupropion HCl Sr] 150 mg PO 07/18/19 07/18/19 History 1 tab Ibuprofen [Motrin] 600 mg PO Q8H PRN #60 tablet 10/04/19 Unknown Rx ED Physical Exam - General Limitations: Altered Mental Status General appearance: alert, in no apparent distress - Head Head exam: Present: atraumatic, normocephalic - Eye Eye exam: Present: normal appearance - ENT ENT exam: Present: mucous membranes moist - Neck Neck exam: Present: normal inspection - Respiratory Respiratory exam: Present: normal lung sounds bilaterally. Absent: respiratory distress, wheezes, rales, rhonchi - Cardiovascular Cardiovascular Exam: Present: regular rate, normal rhythm, normal heart sounds. Absent: systolic murmur, diastolic murmur, rubs, gallop - GI/Abdominal GI/Abdominal exam: Present: soft, normal bowel sounds. Absent: distended, tenderness, guarding, rebound - Extremities Exam Extremities exam: Present: normal inspection - Back Exam Back exam: Present: normal inspection - Neurological Exam Neurological exam: Present: alert, oriented X3 - Psychiatric Psychiatric exam: Present: normal affect, depressed - Skin Skin exam: Present: warm, dry, intact, normal color. Absent: rash ED Course Vital Signs 08/21/21 08/21/21 08/22/21 21:19 23:49 06:02 Temperature 98.7 F 98.1 F Pulse Rate 64 78 Respiratory 18 16 18 Rate Blood Pressure 152/107 111/62 [Right] O2 Sat by Pulse 93 98 98 Oximetry 08/22/21 10:50 Temperature Pulse Rate Respiratory Rate Blood Pressure [Right] O2 Sat by Pulse 98 Oximetry - Reevaluation(s) Reevaluation #1: 08/22/21 03:57 Patient is medically cleared at this time Reevaluation #2: 08/22/21 04:04 Patient is upset and combative that she has to stay in the hospital after being 1013. Patient patient past trying to escape. Patient given some Geodon to calm her ED Medical Decision Making - Lab Data Result diagrams: 08/21/21 23:03 08/21/21 23:03 Lab Results 08/21/21 08/21/21 08/21/21 Range/Units 23:03 23:03 23:03 WBC 15.4 H (4.5-11.0) K/mm3 RBC 5.09 H (3.65-5.03) M/mm3 Hgb 12.6 (10.1-14.3) gm/dl Hct 39.3 (30.3-42.9) % MCV 77 L (79-97) fl MCH 25 L (28-32) pg MCHC 32 (30-34) % RDW 17.2 H (13.2-15.2) % Plt Count 368 (140-440) K/mm3 Add Manual Diff Complete Total Counted 100 Seg Neuts % (Manual) 82.0 H (40.0-70.0) % Band Neutrophils % 9.0 % Lymphocytes % (Manual) 5.0 L (13.4-35.0) % Reactive Lymphs % (Man) 0 % Monocytes % (Manual) 2.0 (0.0-7.3) % Eosinophils % (Manual) 1.0 (0.0-4.3) % Basophils % (Manual) 0 (0.0-1.8) % Metamyelocytes % 1.0 % Myelocytes % 0 % Promyelocytes % 0 % Blast Cells % 0 % Nucleated RBC % Not Reportable Seg Neutrophils # Man 12.6 H (1.8-7.7) K/mm3 Band Neutrophils # 1.4 K/mm3 Lymphocytes # (Manual) 0.8 L (1.2-5.4) K/mm3 Abs React Lymphs (Man) 0.0 K/mm3 Monocytes # (Manual) 0.3 (0.0-0.8) K/mm3 Eosinophils # (Manual) 0.2 (0.0-0.4) K/mm3 Basophils # (Manual) 0.0 (0.0-0.1) K/mm3 Metamyelocytes # 0.2 K/mm3 Myelocytes # 0.0 K/mm3 Promyelocytes # 0.0 K/mm3 Blast Cells # 0.0 K/mm3 WBC Morphology Not Reportable Hypersegmented Neuts Not Reportable Hyposegmented Neuts Not Reportable Hypogranular Neuts Not Reportable Smudge Cells Not Reportable Toxic Granulation Not Reportable Toxic Vacuolation Not Reportable Dohle Bodies Not Reportable Pelger-Huet Anomaly Not Reportable Patricia Rods Not Reportable Platelet Estimate Consistent w auto Clumped Platelets Not Reportable Plt Clumps, EDTA Not Reportable Large Platelets Not Reportable Giant Platelets Not Reportable Platelet Satelliting Not Reportable Plt Morphology Comment Not Reportable RBC Morphology Not Reportable Dimorphic RBCs Not Reportable Polychromasia Not Reportable Hypochromasia Not Reportable Poikilocytosis Not Reportable Anisocytosis Not Reportable Microcytosis Not Reportable Macrocytosis Not Reportable Spherocytes Not Reportable Pappenheimer Bodies Not Reportable Sickle Cells Not Reportable Target Cells Not Reportable Tear Drop Cells Not Reportable Ovalocytes Not Reportable Helmet Cells Not Reportable [place] Bodies Not Reportable [place] Rings Not Reportable Korin Cells Not Reportable Bite Cells Not Reportable Crenated Cell Not Reportable Elliptocytes Not Reportable Acanthocytes (Spur) Not Reportable Rouleaux Not Reportable Hemoglobin C Crystals Not Reportable Schistocytes Not Reportable Malaria parasites Not Reportable Yan Bodies Not Reportable Hem Pathologist Commnt No Sodium 136 L (137-145) mmol/L Potassium 3.7 (3.6-5.0) mmol/L Chloride 98.6 (98-107) mmol/L Carbon Dioxide 27 (22-30) mmol/L Anion Gap 14 mmol/L BUN 8 (7-17) mg/dL Creatinine 0.7 (0.6-1.2) mg/dL Estimated GFR > 60 ml/min BUN/Creatinine Ratio 11 % Glucose 115 H (65-100) mg/dL Calcium 9.0 (8.4-10.2) mg/dL HCG, Qual Negative (Negative) Salicylates (2.8-20.0) mg/dL Acetaminophen (10.0-30.0) ug/mL Plasma/Serum Alcohol (0-0.07) % 08/21/21 08/21/21 08/21/21 Range/Units 23:03 23:03 23:03 WBC (4.5-11.0) K/mm3 RBC (3.65-5.03) M/mm3 Hgb (10.1-14.3) gm/dl Hct (30.3-42.9) % MCV (79-97) fl MCH (28-32) pg MCHC (30-34) % RDW (13.2-15.2) % Plt Count (140-440) K/mm3 Add Manual Diff Total Counted Seg Neuts % (Manual) (40.0-70.0) % Band Neutrophils % % Lymphocytes % (Manual) (13.4-35.0) % Reactive Lymphs % (Man) % Monocytes % (Manual) (0.0-7.3) % Eosinophils % (Manual) (0.0-4.3) % Basophils % (Manual) (0.0-1.8) % Metamyelocytes % % Myelocytes % % Promyelocytes % % Blast Cells % % Nucleated RBC % Seg Neutrophils # Man (1.8-7.7) K/mm3 Band Neutrophils # K/mm3 Lymphocytes # (Manual) (1.2-5.4) K/mm3 Abs React Lymphs (Man) K/mm3 Monocytes # (Manual) (0.0-0.8) K/mm3 Eosinophils # (Manual) (0.0-0.4) K/mm3 Basophils # (Manual) (0.0-0.1) K/mm3 Metamyelocytes # K/mm3 Myelocytes # K/mm3 Promyelocytes # K/mm3 Blast Cells # K/mm3 WBC Morphology Hypersegmented Neuts Hyposegmented Neuts Hypogranular Neuts Smudge Cells Toxic Granulation Toxic Vacuolation Dohle Bodies Pelger-Huet Anomaly Patricia Rods Platelet Estimate Clumped Platelets Plt Clumps, EDTA Large Platelets Giant Platelets Platelet Satelliting Plt Morphology Comment RBC Morphology Dimorphic RBCs Polychromasia Hypochromasia Poikilocytosis Anisocytosis Microcytosis Macrocytosis Spherocytes Pappenheimer Bodies Sickle Cells Target Cells Tear Drop Cells Ovalocytes Helmet Cells [place] Bodies [place] Rings [place] Cells Bite Cells Crenated Cell Elliptocytes Acanthocytes (Spur) Rouleaux Hemoglobin C Crystals Schistocytes Malaria parasites Yan Bodies Hem Pathologist Commnt Sodium (137-145) mmol/L Potassium (3.6-5.0) mmol/L Chloride (98-107) mmol/L Carbon Dioxide (22-30) mmol/L Anion Gap mmol/L BUN (7-17) mg/dL Creatinine (0.6-1.2) mg/dL Estimated GFR ml/min BUN/Creatinine Ratio % Glucose (65-100) mg/dL Calcium (8.4-10.2) mg/dL HCG, Qual (Negative) Salicylates < 0.3 L (2.8-20.0) mg/dL Acetaminophen 5.0 L (10.0-30.0) ug/mL Plasma/Serum Alcohol < 0.01 (0-0.07) % 08/22/21 Range/Units 03:14 WBC (4.5-11.0) K/mm3 RBC (3.65-5.03) M/mm3 Hgb (10.1-14.3) gm/dl Hct (30.3-42.9) % MCV (79-97) fl MCH (28-32) pg MCHC (30-34) % RDW (13.2-15.2) % Plt Count (140-440) K/mm3 Add Manual Diff Total Counted Seg Neuts % (Manual) (40.0-70.0) % Band Neutrophils % % Lymphocytes % (Manual) (13.4-35.0) % Reactive Lymphs % (Man) % Monocytes % (Manual) (0.0-7.3) % Eosinophils % (Manual) (0.0-4.3) % Basophils % (Manual) (0.0-1.8) % Metamyelocytes % % Myelocytes % % Promyelocytes % % Blast Cells % % Nucleated RBC % Seg Neutrophils # Man (1.8-7.7) K/mm3 Band Neutrophils # K/mm3 Lymphocytes # (Manual) (1.2-5.4) K/mm3 Abs React Lymphs (Man) K/mm3 Monocytes # (Manual) (0.0-0.8) K/mm3 Eosinophils # (Manual) (0.0-0.4) K/mm3 Basophils # (Manual) (0.0-0.1) K/mm3 Metamyelocytes # K/mm3 Myelocytes # K/mm3 Promyelocytes # K/mm3 Blast Cells # K/mm3 WBC Morphology Hypersegmented Neuts Hyposegmented Neuts Hypogranular Neuts Smudge Cells Toxic Granulation Toxic Vacuolation Dohle Bodies Pelger-Huet Anomaly Patricia Rods Platelet Estimate Clumped Platelets Plt Clumps, EDTA Large Platelets Giant Platelets Platelet Satelliting Plt Morphology Comment RBC Morphology Dimorphic RBCs Polychromasia Hypochromasia Poikilocytosis Anisocytosis Microcytosis Macrocytosis Spherocytes Pappenheimer Bodies Sickle Cells Target Cells Tear Drop Cells Ovalocytes Helmet Cells [place] Bodies [place] Rings Korin Cells Bite Cells Crenated Cell Elliptocytes Acanthocytes (Spur) Rouleaux Hemoglobin C Crystals Schistocytes Malaria parasites Yan Bodies Hem Pathologist Commnt Sodium (137-145) mmol/L Potassium (3.6-5.0) mmol/L Chloride (98-107) mmol/L Carbon Dioxide (22-30) mmol/L Anion Gap mmol/L BUN (7-17) mg/dL Creatinine (0.6-1.2) mg/dL Estimated GFR ml/min BUN/Creatinine Ratio % Glucose (65-100) mg/dL Calcium (8.4-10.2) mg/dL HCG, Qual (Negative) Salicylates (2.8-20.0) mg/dL Acetaminophen 5.0 L (10.0-30.0) ug/mL Plasma/Serum Alcohol (0-0.07) % - Medical Decision Making Patient placed on a 1013 secondary to suicidal ideations and attempt. Patient states she took Percocet however her time 0 and time for our acetaminophen levels are not consistent with a toxic overdose. Patient is being medically cleared and has been transferred to [facility]. Critical care attestation.: If time is entered above; I have spent that time in minutes in the direct care of this critically ill patient, excluding procedure time. ED Disposition Clinical Impression: Suicidal behavior Disposition: [address] [place] [address] Is pt being admited?: No Does the pt Need Aspirin: No Condition: Stable Referrals: PRIMARY CARE, [Primary Care Provider] - 3-5 Days Time of Disposition: 13:00
[2021-08-22] MEDS ORDERED: ZIPRASIDONE MESYLATE 20 MG VIAL IM ONE (04:04)
--- NOTE | 2021-08-22 11:35 | Consultation ---
History of Present Illness - Reason for Consult Consult date: 08/22/21 Reason for consult: Overdose - History of Present Psychiatric Illness The patient was seen today. She was brought to the ER for an attempt of suicide per overdose. During the evaluation, the patient is not forthcoming, she's back and forth with her stories. She says she was not trying to commit suicide but was only trying to get some sleep. She then says "I snorted it that's why I couldn't wake up." She says "I was trying to get some rest. I have kids." When asking the patient why did she tell the ER doc she was trying to harm herself, she says "he asked me while I was still under the influence. He should have waited till I didn't have the drug in my system." I asked the patient had she ever done anything like this before, she says "no, never." She then continues to talk about how she was upset with her boyfriend and she threw pill bottles over the floor. She says "but that time I was mad at him and only trying to get some rest." She denies any psychiatric history or being on any medications. She then comes back and says "I was on zoloft for depression when I was once admitted into a hospital." When asking the patient why has she admitted into a hospital, she says "I told you I was mad at my boyfriend and he thought I was trying to kill myself." The patient says she wants outpatient treatment, with a therapist. She then says, "If I go to inpatient can you take me there?" PAST PSYCHIATRIC HISTORY: Diagnoses: Depression Suicide attempts or Self-harm behavior: Yes Prior psychiatric hospitalizations: Yes Substance Abuse history: Denies Previous psychiatric medications tried: Zoloft Outpatient treatment: Denies PAST MEDICAL HISTORY: pacer, thyroid disease Family Psychiatric History: None reported or documented SOCIAL HISTORY Marital Status: Single Living Arrangements: with boyfriend Employment Status: Employed Access to guns/weapons: Denies Education: History of Abuse:Denies Legal History: Denies REVIEW OF SYSTEMS Constitutional: Negative for weight loss ENT: Negative for stridor Respiratory: Negative for cough or hemoptysis All other systems reviewed and are negative MENTAL STATUS EXAMINATION General Appearance and Behavior: Age appropriate, good hygiene, wearing appropriate clothes. calm, not forthcoming Cooperation: not forthcoming Psychomotor Behavior: Psychomotor normal Mood: ok Affect and affective range: congruent with stated mood Thought Process: illogical Thought Content: Denies Speech: Normal tone and pace Suicidal Ideation: Denies, but had a recent attempt Homicidal Ideation: Denies Hallucinations: Denies Delusions: Denies Impulse Control: Limited Insight and Judgment: Limited insight and fair judgment Memory: Limited Attention: distracted Orientation: a/o x 3 Assessment (1) Overdose Current Visit: Yes Status: Acute Treatment Plan 1013 Zoloft 25mg po daily Medical: Per primary Disposition: Recommend acute psychiatric inpatient treatment Will follow. Thanks Case staffed with Dr. Peraza Medications and Allergies Allergies Allergy/AdvReac Type Severity Reaction Status Date / Time No Known Allergies Allergy Verified 07/15/17 15:52 Home Medications Medication Instructions Recorded Confirmed Last Taken Type Pnv,Calcium 72/Iron/Folic Acid 1 tab PO DAILY 06/22/15 06/22/15 1 Week Ago History [Pnv Plus Multivit Tab] ~07/11/19 1 tab Oseltamivir [Tamiflu] 75 mg PO BID 5 Days #10 cap 07/10/19 07/18/19 2 Days Ago Rx ~07/16/19 buPROPion HCL [Bupropion HCl Sr] 150 mg PO 07/18/19 07/18/19 History 1 tab Ibuprofen [Motrin] 600 mg PO Q8H PRN #60 tablet 10/04/19 Unknown Rx Mental Status Exam - Vital signs Last Vital Signs Temp 98.1 F 08/21/21 23:49 Pulse 78 08/21/21 23:49 Resp 18 08/22/21 06:02 BP 111/62 08/21/21 23:49 Pulse Ox 98 08/22/21 10:50 Results Result Diagrams: 08/21/21 23:03 08/21/21 23:03 Abnormal lab results 08/21/21 08/21/21 08/21/21 Range/Units 23:03 23:03 23:03 WBC 15.4 H (4.5-11.0) K/mm3 RBC 5.09 H (3.65-5.03) M/mm3 MCV 77 L (79-97) fl MCH 25 L (28-32) pg RDW 17.2 H (13.2-15.2) % Seg Neuts % (Manual) 82.0 H (40.0-70.0) % Lymphocytes % (Manual) 5.0 L (13.4-35.0) % Seg Neutrophils # Man 12.6 H (1.8-7.7) K/mm3 Lymphocytes # (Manual) 0.8 L (1.2-5.4) K/mm3 Sodium 136 L (137-145) mmol/L Glucose 115 H (65-100) mg/dL Salicylates < 0.3 L (2.8-20.0) mg/dL Acetaminophen (10.0-30.0) ug/mL 08/21/21 08/22/21 Range/Units 23:03 03:14 WBC (4.5-11.0) K/mm3 RBC (3.65-5.03) M/mm3 MCV (79-97) fl MCH (28-32) pg RDW (13.2-15.2) % Seg Neuts % (Manual) (40.0-70.0) % Lymphocytes % (Manual) (13.4-35.0) % Seg Neutrophils # Man (1.8-7.7) K/mm3 Lymphocytes # (Manual) (1.2-5.4) K/mm3 Sodium (137-145) mmol/L Glucose (65-100) mg/dL Salicylates (2.8-20.0) mg/dL Acetaminophen 5.0 L 5.0 L (10.0-30.0) ug/mL All other labs normal.
[2021-08-22 12:30] LABS: Bilirubin,Urine NEG (Negative); Blood,Urine MOD (Negative); Color,Urine Amber (Yellow)
[2021-08-22 12:35] LABS: Bacteria,Urine 1+ /HPF (Negative)
[2021-08-22 12:39] LABS: Amphetamine Screen,Urine Negative; Benzodiazepines Screen,Urine Negative; Methadone Screen,Urine Negative; Opiate Screen,Urine Negative
[2021-08-22 12:58] LABS: Cannabinoid Screen,Urine Positive; Cocaine Screen,Urine Positive
[2021-08-22] MEDS ORDERED: SERTRALINE 25 MG TAB PO SCH (13:00)
[2021-08-22] MEDS ORDERED: ACETAMINOPHEN 325 MG TAB PO PRN (13:52)
[2021-08-22] MEDS ORDERED: diphenhydrAMINE 25 MG CAP PO PRN (13:52)
[2021-08-22] MEDS ORDERED: ONDANSETRON 4 MG ODT TAB PO PRN (13:52)
[2021-08-22] MEDS ORDERED: LORazepam 2 MG/ML VIAL IM PRN (13:52)
[2021-08-22] MEDS ORDERED: HALOPERIDOL LACTATE 5 MG/1 ML INJ IM PRN (13:52)
--- NOTE | 2021-08-22 14:05 | Event Note ---
Date: 08/22/21 The patient was evaluated in the emergency department for symptoms described in the history of present illness. He/she was evaluated in the context of the global COVID-19 pandemic, which necessitated consideration that the patient might be at risk for infection with the virus that causes COVID-19. Institutional protocols and algorithms that pertain to the evaluation of patients at risk for COVID-19 are in a state of rapid change based on information released by regulatory bodies including the CDC and federal and state organizations. These policies and algorithms were followed during the patient's care in the emergency department. Please note that these policies, procedures and recommendations changed on a rapid basis. Laboratory studies, vital signs, nursing documentation, ER documentation, and psychiatric documentation are reviewed and appreciated. Nursing team reports no acute events this morning or concerns. The patient is awake g and does not appear to be in any acute distress. The patient was deemed medically suitable for psychiatric disposition and placement during her initial ER evaluation. The patient continues to remain medically suitable for psychiatric placement and disposition. sHe is currently pending psychiatric placement. Urinalysis contaminated with epithelial cells. On patient's original chart, no urinary symptoms were documented. Antibiotics not indicated at this time. Patient has not endorsed urinary symptoms to myself or to nursing team. Initial leukocytosis is likely a stress reaction/ demagination Presentation and history are not suggestive of invasive bacterial illness or serious infectious pathology at this time. Vital Signs 08/21/21 08/21/21 08/22/21 21:19 23:49 06:02 Temperature 98.7 F 98.1 F Pulse Rate 64 78 Respiratory 18 16 18 Rate Blood Pressure 152/107 111/62 [Right] O2 Sat by Pulse 93 98 98 Oximetry 08/22/21 10:50 Temperature Pulse Rate Respiratory Rate Blood Pressure [Right] O2 Sat by Pulse 98 Oximetry Lab Results 08/21/21 08/21/21 08/21/21 Range/Units 23:03 23:03 23:03 WBC 15.4 H (4.5-11.0) K/mm3 RBC 5.09 H (3.65-5.03) M/mm3 Hgb 12.6 (10.1-14.3) gm/dl Hct 39.3 (30.3-42.9) % MCV 77 L (79-97) fl MCH 25 L (28-32) pg MCHC 32 (30-34) % RDW 17.2 H (13.2-15.2) % Plt Count 368 (140-440) K/mm3 Add Manual Diff Complete Total Counted 100 Seg Neuts % (Manual) 82.0 H (40.0-70.0) % Band Neutrophils % 9.0 % Lymphocytes % (Manual) 5.0 L (13.4-35.0) % Reactive Lymphs % (Man) 0 % Monocytes % (Manual) 2.0 (0.0-7.3) % Eosinophils % (Manual) 1.0 (0.0-4.3) % Basophils % (Manual) 0 (0.0-1.8) % Metamyelocytes % 1.0 % Myelocytes % 0 % Promyelocytes % 0 % Blast Cells % 0 % Nucleated RBC % Not Reportable Seg Neutrophils # Man 12.6 H (1.8-7.7) K/mm3 Band Neutrophils # 1.4 K/mm3 Lymphocytes # (Manual) 0.8 L (1.2-5.4) K/mm3 Abs React Lymphs (Man) 0.0 K/mm3 Monocytes # (Manual) 0.3 (0.0-0.8) K/mm3 Eosinophils # (Manual) 0.2 (0.0-0.4) K/mm3 Basophils # (Manual) 0.0 (0.0-0.1) K/mm3 Metamyelocytes # 0.2 K/mm3 Myelocytes # 0.0 K/mm3 Promyelocytes # 0.0 K/mm3 Blast Cells # 0.0 K/mm3 WBC Morphology Not Reportable Hypersegmented Neuts Not Reportable Hyposegmented Neuts Not Reportable Hypogranular Neuts Not Reportable Smudge Cells Not Reportable Toxic Granulation Not Reportable Toxic Vacuolation Not Reportable Dohle Bodies Not Reportable Pelger-Huet Anomaly Not Reportable Patricia Rods Not Reportable Platelet Estimate Consistent w auto Clumped Platelets Not Reportable Plt Clumps, EDTA Not Reportable Large Platelets Not Reportable Giant Platelets Not Reportable Platelet Satelliting Not Reportable Plt Morphology Comment Not Reportable RBC Morphology Not Reportable Dimorphic RBCs Not Reportable Polychromasia Not Reportable Hypochromasia Not Reportable Poikilocytosis Not Reportable Anisocytosis Not Reportable Microcytosis Not Reportable Macrocytosis Not Reportable Spherocytes Not Reportable Pappenheimer Bodies Not Reportable Sickle Cells Not Reportable Target Cells Not Reportable Tear Drop Cells Not Reportable Ovalocytes Not Reportable Helmet Cells Not Reportable [place] Bodies Not Reportable Duenweg Rings Not Reportable Crane Cells Not Reportable Bite Cells Not Reportable Crenated Cell Not Reportable Elliptocytes Not Reportable Acanthocytes (Spur) Not Reportable Rouleaux Not Reportable Hemoglobin C Crystals Not Reportable Schistocytes Not Reportable Malaria parasites Not Reportable Yan Bodies Not Reportable Hem Pathologist Commnt No Sodium 136 L (137-145) mmol/L Potassium 3.7 (3.6-5.0) mmol/L Chloride 98.6 (98-107) mmol/L Carbon Dioxide 27 (22-30) mmol/L Anion Gap 14 mmol/L BUN 8 (7-17) mg/dL Creatinine 0.7 (0.6-1.2) mg/dL Estimated GFR > 60 ml/min BUN/Creatinine Ratio 11 % Glucose 115 H (65-100) mg/dL Calcium 9.0 (8.4-10.2) mg/dL HCG, Qual Negative (Negative) Urine Color (Yellow) Urine Turbidity (Clear) Urine pH (5.0-7.0) Ur Specific [place] (1.003-1.030) Urine Protein (Negative) mg/dL Urine Glucose (UA) (Negative) mg/dL Urine Ketones (Negative) mg/dL Urine Blood (Negative) Urine Nitrite (Negative) Urine Bilirubin (Negative) Urine Urobilinogen (<2.0) mg/dL Ur Leukocyte Esterase (Negative) Urine WBC (Auto) (0.0-6.0) /HPF Urine RBC (Auto) (0.0-6.0) /HPF U Epithel Cells (Auto) (0-13.0) /HPF Urine Bacteria (Auto) (Negative) /HPF Salicylates (2.8-20.0) mg/dL Urine Opiates Screen Urine Methadone Screen Acetaminophen (10.0-30.0) ug/mL Ur Barbiturates Screen Ur Phencyclidine Scrn Ur Amphetamines Screen U Benzodiazepines Scrn Urine Cocaine Screen U Marijuana (THC) Screen Drugs of Abuse Note Plasma/Serum Alcohol (0-0.07) % 08/21/21 08/21/21 08/21/21 Range/Units 23:03 23:03 23:03 WBC (4.5-11.0) K/mm3 RBC (3.65-5.03) M/mm3 Hgb (10.1-14.3) gm/dl Hct (30.3-42.9) % MCV (79-97) fl MCH (28-32) pg MCHC (30-34) % RDW (13.2-15.2) % Plt Count (140-440) K/mm3 Add Manual Diff Total Counted Seg Neuts % (Manual) (40.0-70.0) % Band Neutrophils % % Lymphocytes % (Manual) (13.4-35.0) % Reactive Lymphs % (Man) % Monocytes % (Manual) (0.0-7.3) % Eosinophils % (Manual) (0.0-4.3) % Basophils % (Manual) (0.0-1.8) % Metamyelocytes % % Myelocytes % % Promyelocytes % % Blast Cells % % Nucleated RBC % Seg Neutrophils # Man (1.8-7.7) K/mm3 Band Neutrophils # K/mm3 Lymphocytes # (Manual) (1.2-5.4) K/mm3 Abs React Lymphs (Man) K/mm3 Monocytes # (Manual) (0.0-0.8) K/mm3 Eosinophils # (Manual) (0.0-0.4) K/mm3 Basophils # (Manual) (0.0-0.1) K/mm3 Metamyelocytes # K/mm3 Myelocytes # K/mm3 Promyelocytes # K/mm3 Blast Cells # K/mm3 WBC Morphology Hypersegmented Neuts Hyposegmented Neuts Hypogranular Neuts Smudge Cells Toxic Granulation Toxic Vacuolation Dohle Bodies Pelger-Huet Anomaly Patricia Rods Platelet Estimate Clumped Platelets Plt Clumps, EDTA Large Platelets Giant Platelets Platelet Satelliting Plt Morphology Comment RBC Morphology Dimorphic RBCs Polychromasia Hypochromasia Poikilocytosis Anisocytosis Microcytosis Macrocytosis Spherocytes Pappenheimer Bodies Sickle Cells Target Cells Tear Drop Cells Ovalocytes Helmet Cells [place]olena Bodies Duenweg Rings Korin Cells Bite Cells Crenated Cell Elliptocytes Acanthocytes (Spur) Rouleaux Hemoglobin C Crystals Schistocytes Malaria parasites Yan Bodies Hem Pathologist Commnt Sodium (137-145) mmol/L Potassium (3.6-5.0) mmol/L Chloride (98-107) mmol/L Carbon Dioxide (22-30) mmol/L Anion Gap mmol/L BUN (7-17) mg/dL Creatinine (0.6-1.2) mg/dL Estimated GFR ml/min BUN/Creatinine Ratio % Glucose (65-100) mg/dL Calcium (8.4-10.2) mg/dL HCG, Qual (Negative) Urine Color (Yellow) Urine Turbidity (Clear) Urine pH (5.0-7.0) Ur Specific [place] (1.003-1.030) Urine Protein (Negative) mg/dL Urine Glucose (UA) (Negative) mg/dL Urine Ketones (Negative) mg/dL Urine Blood (Negative) Urine Nitrite (Negative) Urine Bilirubin (Negative) Urine Urobilinogen (<2.0) mg/dL Ur Leukocyte Esterase (Negative) Urine WBC (Auto) (0.0-6.0) /HPF Urine RBC (Auto) (0.0-6.0) /HPF U Epithel Cells (Auto) (0-13.0) /HPF Urine Bacteria (Auto) (Negative) /HPF Salicylates < 0.3 L (2.8-20.0) mg/dL Urine Opiates Screen Urine Methadone Screen Acetaminophen 5.0 L (10.0-30.0) ug/mL Ur Barbiturates Screen Ur Phencyclidine Scrn Ur Amphetamines Screen U Benzodiazepines Scrn Urine Cocaine Screen U Marijuana (THC) Screen Drugs of Abuse Note Plasma/Serum Alcohol < 0.01 (0-0.07) % 08/22/21 08/22/21 08/22/21 Range/Units 03:14 Unknown Unknown WBC (4.5-11.0) K/mm3 RBC (3.65-5.03) M/mm3 Hgb (10.1-14.3) gm/dl Hct (30.3-42.9) % MCV (79-97) fl MCH (28-32) pg MCHC (30-34) % RDW (13.2-15.2) % Plt Count (140-440) K/mm3 Add Manual Diff Total Counted Seg Neuts % (Manual) (40.0-70.0) % Band Neutrophils % % Lymphocytes % (Manual) (13.4-35.0) % Reactive Lymphs % (Man) % Monocytes % (Manual) (0.0-7.3) % Eosinophils % (Manual) (0.0-4.3) % Basophils % (Manual) (0.0-1.8) % Metamyelocytes % % Myelocytes % % Promyelocytes % % Blast Cells % % Nucleated RBC % Seg Neutrophils # Man (1.8-7.7) K/mm3 Band Neutrophils # K/mm3 Lymphocytes # (Manual) (1.2-5.4) K/mm3 Abs React Lymphs (Man) K/mm3 Monocytes # (Manual) (0.0-0.8) K/mm3 Eosinophils # (Manual) (0.0-0.4) K/mm3 Basophils # (Manual) (0.0-0.1) K/mm3 Metamyelocytes # K/mm3 Myelocytes # K/mm3 Promyelocytes # K/mm3 Blast Cells # K/mm3 WBC Morphology Hypersegmented Neuts Hyposegmented Neuts Hypogranular Neuts Smudge Cells Toxic Granulation Toxic Vacuolation Dohle Bodies Pelger-Huet Anomaly Patricia Rods Platelet Estimate Clumped Platelets Plt Clumps, EDTA Large Platelets Giant Platelets Platelet Satelliting Plt Morphology Comment RBC Morphology Dimorphic RBCs Polychromasia Hypochromasia Poikilocytosis Anisocytosis Microcytosis Macrocytosis Spherocytes Pappenheimer Bodies Sickle Cells Target Cells Tear Drop Cells Ovalocytes Helmet Cells [place]pa-Molena Bodies Duenweg Rings Crane Cells Bite Cells Crenated Cell Elliptocytes Acanthocytes (Spur) Rouleaux Hemoglobin C Crystals Schistocytes Malaria parasites Yan Bodies Hem Pathologist Commnt Sodium (137-145) mmol/L Potassium (3.6-5.0) mmol/L Chloride (98-107) mmol/L Carbon Dioxide (22-30) mmol/L Anion Gap mmol/L BUN (7-17) mg/dL Creatinine (0.6-1.2) mg/dL Estimated GFR ml/min BUN/Creatinine Ratio % Glucose (65-100) mg/dL Calcium (8.4-10.2) mg/dL HCG, Qual (Negative) Urine Color [place] (Yellow) Urine Turbidity Cloudy (Clear) Urine pH 5.0 (5.0-7.0) Ur Specific [place] 1.017 (1.003-1.030) Urine Protein 30 mg/dl (Negative) mg/dL Urine Glucose (UA) Neg (Negative) mg/dL Urine Ketones Tr (Negative) mg/dL Urine Blood Mod (Negative) Urine Nitrite Neg (Negative) Urine Bilirubin Neg (Negative) Urine Urobilinogen 2.0 (<2.0) mg/dL Ur Leukocyte Esterase Lg (Negative) Urine WBC (Auto) 15.0 H (0.0-6.0) /HPF Urine RBC (Auto) 8.0 (0.0-6.0) /HPF U Epithel Cells (Auto) 16.0 H (0-13.0) /HPF Urine Bacteria (Auto) 1+ (Negative) /HPF Salicylates (2.8-20.0) mg/dL Urine Opiates Screen Negative Urine Methadone Screen Negative Acetaminophen 5.0 L (10.0-30.0) ug/mL Ur Barbiturates Screen Negative Ur Phencyclidine Scrn Negative Ur Amphetamines Screen Negative U Benzodiazepines Scrn Negative Urine Cocaine Screen Positive U Marijuana (THC) Screen Positive Drugs of Abuse Note Disclamer Plasma/Serum Alcohol (0-0.07) %
== END 2021-08-22 14:59 ==
LOC: ED 21:16
DX: R45.851 Suicidal ideations (principal); D57.3 Sickle-cell trait
CPT/HCPCS: 36415; 80048; 80307; 80320; 81001; 84703; 85007; 85025; 87086; 99285; G0480; J3486

== ENCOUNTER 2022-02-05 22:09 | Emergency (ER) | payer OTHER ==
--- NOTE | 2022-02-05 23:11 | Emergency Department Report ---
ED General Adult HPI - General Stated complaint: OVERDOSE Time Seen by Provider: 02/05/22 22:44 Source: patient - History of Present Illness Initial comments: 26-year-old female brought in by EMS with concerns of possible overdose. According patient she took several Percocet that was not prescribed for her. Patient denies being suicidal attempt and states it was for her mental stress. Patient denies any other symptoms denies fever chill night sweat dizziness blurred vision lightheadedness headache tinnitus ear pain runny nose sore throat loss of taste loss smell chest pain palpitation short breath cough abdominal pain nausea vomiting diarrhea constipation joint pain muscle pain new rash heat or cold intolerance. - Related Data Home Medications Medication Instructions Recorded Confirmed Last Taken Pnv,Calcium 72/Iron/Folic Acid 1 tab PO DAILY 06/22/15 06/22/15 1 Week Ago [Pnv Plus Multivit Tab] ~07/11/19 1 tab buPROPion HCL [Bupropion HCl Sr] 150 mg PO 07/18/19 07/18/19 1 tab Previous Rx's Medication Instructions Recorded Last Taken Type Oseltamivir [Tamiflu] 75 mg PO BID 5 Days #10 cap 07/10/19 2 Days Ago Rx ~07/16/19 Ibuprofen [Motrin] 600 mg PO Q8H PRN #60 tablet 10/04/19 Unknown Rx Allergies Allergy/AdvReac Type Severity Reaction Status Date / Time No Known Allergies Allergy Verified 02/05/22 23:06 ED Review of Systems ROS: Stated complaint: OVERDOSE Other details as noted in HPI Comment: All other systems reviewed and negative ED Past Medical Hx - Past Medical History Hx Hypertension: No Hx CVA: No Hx Heart Attack/AMI: No Hx Congestive Heart Failure: No Hx Diabetes: No Hx Deep Vein Thrombosis: No Hx Pulmonary Embolism: No Hx GERD: No Hx Liver Disease: No Hx Renal Disease: No Hx Sickle Cell Disease: No Hx Arthritis: No Hx Headaches / Migraines: No Hx Seizures: No Hx Kidney Stones: No Hx Psychiatric Treatment: No Hx Asthma: No Hx COPD: No Hx HIV: No Additional medical history: ASYMPTOMATIC HEART MURMUR ,sickle cell TRAIT, ANXIETY - Surgical History Additional Surgical History: N/A - Social History Smoking Status: Never Smoker Substance Use Type: None - Medications Home Medications: Home Medications Medication Instructions Recorded Confirmed Last Taken Type Pnv,Calcium 72/Iron/Folic Acid 1 tab PO DAILY 06/22/15 06/22/15 1 Week Ago History [Pnv Plus Multivit Tab] ~07/11/19 1 tab Oseltamivir [Tamiflu] 75 mg PO BID 5 Days #10 cap 07/10/19 07/18/19 2 Days Ago Rx ~07/16/19 buPROPion HCL [Bupropion HCl Sr] 150 mg PO 07/18/19 07/18/19 History 1 tab Ibuprofen [Motrin] 600 mg PO Q8H PRN #60 tablet 10/04/19 Unknown Rx ED Course Vital Signs 02/05/22 02/05/22 02/05/22 23:20 23:23 23:31 Temperature 98.4 F Pulse Rate 96 H 96 H 110 H Respiratory 13 20 11 L Rate Blood Pressure 147/105 143/99 Blood Pressure 132/88 [Left] O2 Sat by Pulse 97 99 Oximetry 02/05/22 02/05/22 02/06/22 23:41 23:45 00:01 Temperature Pulse Rate 131 H 117 H 90 Respiratory 14 16 Rate Blood Pressure 143/99 143/99 143/96 Blood Pressure [Left] O2 Sat by Pulse 99 100 Oximetry 02/06/22 02/06/22 02/06/22 00:15 00:31 00:45 Temperature Pulse Rate 94 H 95 H 96 H Respiratory Rate Blood Pressure 143/96 122/73 122/73 Blood Pressure [Left] O2 Sat by Pulse 94 Oximetry 02/06/22 02/06/22 02/06/22 01:01 01:15 01:31 Temperature Pulse Rate 95 H 77 81 Respiratory 10 L 10 L Rate Blood Pressure 132/93 132/93 120/73 Blood Pressure [Left] O2 Sat by Pulse 100 95 95 Oximetry 02/06/22 02/06/22 02/06/22 02:01 02:31 02:45 Temperature Pulse Rate 83 81 82 Respiratory Rate Blood Pressure 113/67 115/71 115/71 Blood Pressure [Left] O2 Sat by Pulse 96 Oximetry 02/06/22 02/06/22 02/06/22 03:40 03:46 04:04 Temperature Pulse Rate Respiratory Rate Blood Pressure 120/81 120/81 120/81 Blood Pressure [Left] O2 Sat by Pulse Oximetry - Reevaluation(s) Reevaluation #1: 02/06/22 05:01 Patient remained hemodynamically stable and afebrile in the ER. ED Medical Decision Making - Lab Data Result diagrams: 02/05/22 23:15 02/05/22 23:15 - EKG Data -: EKG Interpreted by Me EKG shows normal: sinus rhythm Rate: normal - EKG Data When compared to previous EKG there are: no significant change Interpretation: no acute changes, normal EKG 02/06/22 01:48 NSR AT 97 BPM; NO ST ELEVATION OR DEPRESSION; QT/QTC AT 347/441 Critical care attestation.: If time is entered above; I have spent that time in minutes in the direct care of this critically ill patient, excluding procedure time. ED Disposition Clinical Impression: Overdose by ingestion Disposition: 01 HOME / SELF CARE / HOMELESS Is pt being admited?: No Does the pt Need Aspirin: No Condition: Stable Referrals: JULISSA TEJADA MD [Primary Care Provider] - 3-5 Days Time of Disposition: 05:01
[2022-02-05 23:33] LABS: Hematocrit 36.8 % (30.3-42.9); Hemoglobin 12.2 gm/dl (10.1-14.3); Mean Corpuscular HGB Conc 33 % (30-34); Mean Corpuscular Volume 79 fl (79-97); Platelet Count 303 K/mm3 (140-440); Red Blood Count 4.68 M/mm3 (3.65-5.03); Red Cell Distribution Width 16.4 % (13.2-15.2)
[2022-02-05 23:48] LABS: Amphetamine Screen,Urine PRESUMPTIVE NEGATIVE; Benzodiazepines Screen,Urine PRESUMPTIVE NEGATIVE; Cannabinoid Screen,Urine PRESUMPTIVE NEGATIVE; Cocaine Screen,Urine PRESUMPTIVE POSITIVE; Methadone Screen,Urine PRESUMPTIVE NEGATIVE; Opiate Screen,Urine PRESUMPTIVE NEGATIVE
[2022-02-05 23:50] LABS: Alanine Aminotransferase 9 units/L (7-56); Albumin 4.1 g/dL (3.9-5); BUN/Creatinine Ratio 13; Blood Urea Nitrogen 12 mg/dL (7-17); Calcium 9.6 mg/dL (8.4-10.2); Hemolysis Index 14
[2022-02-05 23:53] LABS: Bacteria,Urine 1+ /HPF (Negative); Hyaline Casts,Urine 4 /LPF
[2022-02-05 23:56] LABS: Color,Urine Colorless (Yellow)
[2022-02-05 23:57] LABS: Bilirubin,Urine Negative (Negative); Blood,Urine Trace (Negative)
[2022-02-06] MEDS ORDERED: cefTRIAXone/NS 1 GM/50 ML 1 GM/50 ML BAG IV ONE (00:35)
[2022-02-06 05:52] VITALS: BP 124/79
--- NOTE | 2022-02-07 13:40 | Electrocardiograph Report ---
[facility] Test Date: 2022-02-05 Test Time: 23:20:10 Pat Name: LESLI LOPEZ Department: Room: Gender: F Night Shift: ANTOINE : 1995 Requested By: HELEN NG Order Number: [id number] Reading MD: Na Burton Measurements Intervals Benedict Rate: 97 P: 81 TN: 124 QRS: 47 QRSD: 96 T: 53 QT: 347 QTc: 441 Interpretive Statements Sinus arrhythmia Compared to ECG 03/23/2021 10:10:11 Sinus rate has slowed Electronically Signed On 02-07-2022 13:40:17 EDT by Na Burton
== END 2022-02-06 05:10 | disposition home or self-care (01) ==
LOC: ED 22:09
DX: T50.901A Poisoning by unspecified drugs, medicaments and biological substances, accidental (unintentional), initial encounter (principal); Y92.89 Other specified places as the place of occurrence of the external cause
CPT/HCPCS: 36415; 80053; 80307; 81001; 85027; 93005; 96365; 99284; J0696; 80320; G0480